=== PATIENT | male | born 1995 | race Caucasian/White ===

== ENCOUNTER 2020-04-27 17:02 | Outpatient (REF) | payer OTHER, SELFPAY ==
[2020-04-27 17:27] LABS: COVID-19 Test Negative (Negative); IDNOW Serial# 55D5AD1C
== END 2020-04-27 17:03 | disposition home or self-care (01) ==
LOC: HO.LAB 17:02
PROVIDERS: Visit Provider Internal Medicine
DX: Z20.828 Contact with and (suspected) exposure to other viral communicable diseases (principal)
CPT/HCPCS: 87635; C9803

== ENCOUNTER 2020-05-07 11:48 | Outpatient (REF) | payer OTHER, SELFPAY ==
[2020-05-07 12:22] LABS: COVID-19 Test Positive (Negative)
== END 2020-05-07 11:49 | disposition home or self-care (01) ==
LOC: HO.LAB 11:48
PROVIDERS: Visit Provider Internal Medicine
DX: Z20.828 Contact with and (suspected) exposure to other viral communicable diseases (principal)
CPT/HCPCS: 36415; 87635; C9803

== ENCOUNTER 2020-05-18 10:47 | Outpatient (REF) | payer OTHER, SELFPAY ==
[2020-05-20 10:15] LABS: SARS-COV-2 PCR UMBRL NEGATIVE
== END 2020-05-18 10:48 | disposition home or self-care (01) ==
LOC: HO.LAB 10:47
PROVIDERS: Visit Provider Internal Medicine
DX: Z20.822 Contact with and (suspected) exposure to COVID-19 (principal)
CPT/HCPCS: 36415; C9803; U0003

== ENCOUNTER → 2020-09-17 11:54 | Outpatient (REF) | payer OTHER, SELFPAY ==
--- NOTE | 2020-09-17 12:37 | ECG_ITS ---
Test Reason : R55 Blood Pressure : / mmHG Vent. Rate : 069 BPM Atrial Rate : 069 BPM P-R Int : 128 ms QRS Dur : 096 ms QT Int : 366 ms P-R-T Axes : 067 084 031 degrees QTc Int : 392 ms Normal sinus rhythm with sinus arrhythmia Incomplete right bundle branch block Borderline ECG No previous ECGs available Referred By: Jairo Darby Electronically Signed By:YAKELIN IBANEZ MD
[2020-09-17 13:10] LABS: MANUAL DIFF FLAG NO
[2020-09-17 13:14] LABS: Basophils Percent Auto 0.7 % (0-2); Eosinophils Absolute Auto 0.4 X10*3/uL (0.0-0.4); Hematocrit 43.4 % (42-52); Hemoglobin 14.7 g/dl (14.0-18.0); Imm Gran Abs Auto 0.02 X10*3/uL (0.00-0.03); Imm Gran Pct Auto 0.4 % (0.0-0.4); Lymphocytes Absolute Auto 2.2 X10*3/uL (1.2-4.9); Lymphocytes Percent Auto 39.4 % (20-40); Mean Corpuscular HGB Conc 33.9 g/dl (31.0-36.0); Mean Corpuscular Hemoglobin 28.7 pg (27.0-33.0); Mean Corpuscular Volume 84.6 fL (80-98); Monocytes Absolute Auto 0.6 X10*3/uL (0.1-1.2); Monocytes Percent Auto 10.6 % (2-11); Neutrophils Absolute Auto 2.3 X10*3/uL (2.0-8.3); Neutrophils Percent Auto 41.9 % (45-73); Platelet Count 307 X10*3/uL (160-400); Red Blood Count 5.13 X10*6/uL (4.60-5.80); Red Cell Distribution Width 12.4 % (11.0-16.0); White Blood Count 5.6 X10*3/uL (4.8-10.8)
[2020-09-17 13:34] LABS: Alanine Aminotransferase 17 U/L (0-40); Albumin Level 4.5 g/dL (3.5-5.0); Alkaline Phosphatase 51 U/L (39-117); Anion Gap 10 (12-20); Aspartate Amino Transferase 22 U/L (5-37); Bilirubin Total 0.7 mg/dL (0.0-1.0); Blood Urea Nitrogen 15 mg/dL (9-16); Calcium 9.9 mg/dL (8.4-10.2); Carbon Dioxide 27 mmol/L (22-29); Chloride 105 mmol/L (96-108); Estimated Glomerular Filt Rate > 60; Glucose Random 99 mg/dL (60-115); Potassium 4.4 mmol/L (3.3-5.1); Sodium 138 mmol/L (135-145); Total Protein 6.7 g/dL (6.5-8.0)
== END ==
LOC: HO.CARD 11:54
PROVIDERS: Visit Provider Family Medicine
DX: R55 Syncope and collapse (principal)
CPT/HCPCS: 36415; 80053; 84443; 85025; 93005

== ENCOUNTER → 2020-09-23 09:30 | Outpatient (BNVA) | payer OTHER, SELFPAY | PROVIDERS: PCP Pediatrics; Visit Provider Internal Medicine Cardiovascular Disease ==

== ENCOUNTER → 2020-09-25 10:32 | Outpatient (REF) | payer OTHER, SELFPAY ==
--- NOTE | 2020-09-25 10:30 | CA_ITS ---
Transthoracic Echocardiogram Patient (Last, First, Middle): Markell Griffiths, Gender: Male Date of : 1995 Age: 24 Procedure Date: 09/25/2020 Procedure Type: Transthoracic Echocardiogram Location: OP Height: 172.72 cm Weight: 66.23 kg BSA: 1.79 m2 Heart Rate: bpm BP: 121 / 81 mmHg Surgical Coder: ALISE Referring MD: Alberto Hansen MD Symptoms: R55 SYNCOPE Study Quality: Good ECG Rhythm: Sinus bradycardia Conclusions: - The left ventricular systolic function is normal. The visually estimated ejection fraction is between 60-65%. - No obvious valvular pathology seen on this study. Findings Left Ventricle Normal left ventricular cavity size. There is normal left ventricular wall thickness. The left ventricular systolic function is normal. The visually estimated ejection fraction is between 60-65%. There is no evidence of regional wall motion abnormalities. Diastolic function is normal for age. Right Ventricle Normal right ventricular cavity size and systolic function. Aortic Valve There is a normal trileaflet aortic valve. There is no aortic valve stenosis. There is no aortic valve regurgitation. Mitral Valve The mitral valve appears normal. There is trace mitral valve regurgitation. There is no mitral valve stenosis. Pulmonic Valve The pulmonic valve was not well visualized. Tricuspid Valve Normal tricuspid valve structure. There is trace tricuspid valve regurgitation. The pulmonary artery systolic pressure is normal. Great Vessels The aortic annulus, sinuses of valsalva, asc aorta, and aortic arch are normal in size. Venous The inferior vena cava is normal in size and collapses greater than 50% with inspiration. Pericardium/Pleural There is no evidence of pericardial effusion. Prior Study Comparison No prior study available for comparison. Recommendations, Care & Conclusions No obvious valvular pathology seen on this study. Measurements M-Mode Liner Measurements Normals - Women/Men AOV Cusps: 2.00 1.5-2.6 cm/m2 2D Linear Measurements IVSd: 0.50 0.6-0.9/0.6-1.0 cm LVIDd: 5.01 3.9-5.3/4.2-5.9 cm LVIDd Index: 2.80 2.4-3.2/2.2-3.1 cm/m2 LVIDs: 3.50 2.0-3.6 cm LVPWd: 0.65 0.7-1.1 cm Ao Root: 2.60 2.1-3.5 cm LA Diam: 3.20 2.7-3.8/3.0-4.0 cm LAIDs Index: 1.79 1.5-2.3 cm/m2 LV Mass: 112.67 67-162/88-224 g LV Mass Index: 62.94 43-95/49-115 g/m2 LVOT Diam: 2.00 3.0+(-)1.3 cm 2D Systolic Function EF 4C: 65.80 >55% EF 2C: 65.30 >55% EF BiP: 65.30 >55% Mitral Valve MV Pk E: 0.87 MV PK A: 0.39 MV Decel Time: 275.00 E/A: 2.30 E'Lateral: 22.00 E'Medial: 13.50 E/E' Med: 6.50 E/E' Lat: 4.00 PHT: 80.00 MVA PHT: 2.75 Decel [place]: 3.18 Aortic Valve AoV Pk Michael: 1.31 AoV Mn Michael: 0.85 AoV VTI: 0.29 AoV Pk Grad: 7.00 Aov Mn Grad: 3.00 ROGE Cont.VTI: 2.30 LVOT LVOT Pk Michael: 1.03 LVOT Mn Michael: 0.65 LVOT VTI: 0.21 LVOT Pk Grad: 4.00 LVOT Mn Grad: 2.00 LVOT Diam: 2.00 LVOT Area: 3.14 Diastolic Function MV Pk E: 0.87 MV Pk A: 0.39 E/A: 2.30 E'Medial: 13.50 E/E' Med: 6.50 E' Laterial: 22.00 E/E' Lat: 4.00 Tricuspid Valve TR Pk Michael: 2.22 TR Pk Grad: 20.00 RA Press: 3.00 RVSP: 23.00 Great Vessels Aorta Ao Root-2D: 2.60 2.0-3.7 cm Ao Asc: 2.30 2.1-3.4 cm Ao Arch: 2.20 Pulmonary Valve PV Pk Michael: 0.91 Peak PV Grad: 3.00 Updated in Other Vendor System with Status of Final Freddy Brown MD electronically signed on 09/26/2020 1:24:58 PM with status of Final
== END ==
LOC: HO.CARD 10:32
PROVIDERS: PCP Family Medicine; Visit Provider Internal Medicine Cardiovascular Disease
DX: R55 Syncope and collapse (principal)
CPT/HCPCS: 93306

== ENCOUNTER → 2020-10-02 09:38 | Outpatient (REF) | payer OTHER, SELFPAY ==
--- NOTE | 2020-10-02 15:30 | ECG_ITS ---
Hook-up date: 2020-10-02 10:09:00 Duration: 47:59:00 Test Indications: SYNCOPE AND COLLAPSE Medications: [id number] QRS complexes * Ventricular ectopics which represent % of total QRS comp. 21 Supraventricular ectopics which represent <1 % of total QRS comp. * Paced QRS complexs which represent % of total QRS comp. VENTRICULAR ECTOPY * Isolated * Bigeminal Cycles * Couplets * Runs * Beats in Runs * Beats LONGEST at * BPM at :: -- * Beats FASTEST at * BPM at :: -- SUPRAVENTRICULAR ECTOPY 21 Isolated 0 Couplets 0 Runs 0 Beats in Runs * Beats LONGEST at * BPM at :: -- * Beats FASTEST at * BPM at :: -- HEART RATES 39 MIN at 05:25:24 2020-10-03 77 AVG 189 MAX at 11:49:49 2020-10-02 LONGEST RR 1.8800 secs at 06:54:56 2020-10-03 S-T LEVELS Channel 1 - 128 mm at 10:09:00 2020-10-02 - 128 mm at 10:09:00 2020-10-02 Channel 2 - 128 mm at 10:09:00 2020-10-02 - 128 mm at 10:09:00 2020-10-02 Channel 3 - 128 mm at 02:92:81 -- - 128 mm at 02:92:81 Basic rhythm Normal sinus rhythm No long pause or profound bradycardia Rare Premature atrial complexes No diary submitted Referred By: Alberto Hansen Overread By: ALBERTO HANSEN MD
== END ==
LOC: HO.CARD 09:38
PROVIDERS: PCP Family Medicine; Visit Provider Internal Medicine Cardiovascular Disease
DX: R55 Syncope and collapse (principal)
CPT/HCPCS: 93226

== ENCOUNTER → 2020-10-19 10:15 | Outpatient (BNVA) | payer OTHER, SELFPAY | PROVIDERS: PCP Family Medicine; Referring Provider Family Medicine; Visit Provider Internal Medicine Cardiovascular Disease ==

== ENCOUNTER 2020-10-28 11:07 | Day surgery (SDC) | payer OTHER, SELFPAY ==
--- NOTE | 2020-10-01 23:59 | ECG_ITS ---
Test Reason : CP Blood Pressure : / mmHG Vent. Rate : 081 BPM Atrial Rate : 081 BPM P-R Int : 132 ms QRS Dur : 094 ms QT Int : 370 ms P-R-T Axes : 057 075 023 degrees QTc Int : 429 ms Normal sinus rhythm Incomplete right bundle branch block Borderline ECG No previous ECGs available Referred By: Geoffrey Samson Electronically Signed By:YAKELIN IBANEZ MD
[2020-10-22 15:05] VITALS: BMI 21.2
--- NOTE | 2020-10-27 08:35 | P.CONAN_ITS ---
HPI - Anesthesia Eval Consult details Narrative: 25yo M for Pacemaker Insertion, Dual +Tilt table test: Vasovagal syncope type 2B with predominantly cardio inhibitory response with asystole immediately within a minute after head-up tilt positioning. COUNT INCLUDES THE [facility] Active Problems Active Problems: All Active Problems (Updated 10/22/20 @ 15:05 by Jessenia Mccauley) Vasovagal syncope (Acute) Past Medical History Medical History (Updated 10/22/20 @ 15:05 by Jessenia Mccauley) History of COVID-19 Vasovagal syncope Family History Family History Father CAD (coronary artery disease) Mother No problems noted. Social History Social History Household Members: Family Household Members Other:: 3 Housing: Apartment Patient Tobacco Use Status: Never used Tobacco Substance Use Type: Marijuana Meds Allergies Allergy/AdvReac Type Severity Reaction Status Date / Time bee pollen [BEE STINGS] Allergy Severe ANAPHYLAXIS Verified 10/28/20 12:41 Exam Exam Date and Time: October 27, 2020 0835 Height,Weight and Vital Signs: Height 5 ft 8 in Weight 63.503 kg Pertinent Lab Results Pertinent Lab Results: Laboratory Tests 09/17/20 09/17/20 12:55 12:55 WBC 5.6 Hgb 14.7 Hct 43.4 Plt Count 307 Sodium 138 Potassium 4.4 Chloride 105 Carbon Dioxide 27 BUN 15 Creatinine 0.87 Narrative Narrative: EKG 08/2020 Vent. Rate : 069 BPM Atrial Rate : 069 BPM P-R Int : 128 ms QRS Dur : 096 ms QT Int : 366 ms P-R-T Axes : 067 084 031 degrees QTc Int : 392 ms Normal sinus rhythm with sinus arrhythmia Incomplete right bundle branch block Borderline ECG No previous ECGs available ECHO 08/2020 Conclusions: - The left ventricular systolic function is normal. The visually estimated ejection fraction is between 60-65%. - No obvious valvular pathology seen on this study. Head-up tilt-table test was highly abnormal. Within 30 seconds after going upright he felt like he was going to pass out and subsequently had a systolic episode of 7 seconds. Patient loss consciousness. He was then tilted back to supine position regained consciousness after 30 seconds. per cardiac note Assessment and Plan Assessment Anesthesia Assessment: Chart Reviewed
[2020-10-28] VITALS (12 sets, daily range): BP systolic 107–124; BP diastolic 56–82; PULSE 65–113; RESP 18–20; TEMP 36.3–37.1; O2SAT 95–99; BMI 21.2
--- NOTE | ~2020-10-28 | XR_ITS ---
EXAMINATION: XR CHEST CLINICAL INFORMATION: Pacemaker insertion COMPARISON: Previous chest and left rib x-ray August 2011 TECHNIQUE: Frontal view of the chest was obtained. FINDINGS: There is a new left subclavian dual chamber pacemaker in satisfactory position. The cardiac and mediastinal contours are normal. The lungs are clear. There is no effusion or thorax. Bony structures are unremarkable. XR/XR chest 1V IMPRESSION: Satisfactory position of left subclavian dual chamber pacemaker. No pneumothorax.
--- NOTE | ~2020-10-28 | FL_ITS ---
EXAMINATION: XR FLUOROSCOPY WITH IMAGES CLINICAL INFORMATION: Pacemaker insertion COMPARISON: None. TECHNIQUE: Fluoroscopy performed by Dr. Geoffrey Samson. Fluoroscopy time: 1 minutes Dose: 100 mgy Images: 1 FINDINGS: Single AP fluoroscopic view of the chest demonstrates a dual-chamber pacemaker in satisfactory position. FL/FL guidance in OR IMPRESSION: Fluoroscopy guidance for pacemaker placement.
[2020-10-28] MEDS: Lactated Ringers 1,000 ML 100 ML IVCONT (12:13)
--- NOTE | 2020-10-28 12:34 | MHC.SHP ---
Pre-Procedural Eval Section A Date of Service: 10/28/20 Section B Chief Complaint: syncope Allergies: Allergies Allergy/AdvReac Type Severity Reaction Status Date / Time bee pollen [BEE STINGS] Allergy Severe ANAPHYLAXIS Unverified 01/16/20 17:44 Plan I have reviewed the history and physical and performed a pertinent physical examination on my patient. No changes have occurred unless specified.
--- NOTE | 2020-10-28 14:54 | P.OP_ITS ---
Operative Note Operative Note Date of Service: 10/28/20 Narrative: Preoperative diagnosis: Syncope and vasovagal syndrome type to be with cardio inhibitory effect Postoperative diagnosis: Same Operation: Placement of dual-chamber permanent pacemaker with fluoroscopic guidance Surgeon: Geoffrey Samson MD Specimens: None EBL: 5 cc Operative findings: The pacemaker placed was a Medtronic serial number [id number]. The atrial lead was a Medtronic serial number [id number]. The ventricular lead was a Medtronic serial number [id number]. Parameters in the right atrial lead sensing was 4.125 with impedance of 722 Ohms and a threshold of 0.5 volts at 0.4 milliseconds. In the ventricular lead threshold was 0.5 volts at 0.4 milliseconds with an impedance of 912 Ohms and an R-wave of 11.8 mV. Patient tolerated procedure well. Operation in detail: The patient was brought to the operating room, placed supine on the operating room table, anesthesia moderate of ices were placed, and the patient was gently sedated. A time-out was performed confirming the correct patient site and procedure. After injection of local anesthetic, a 3 cm incision was made in the left infraclavicular region and carried down to the pectoralis fascia with electrocautery. The patient was then placed in Trendelenburg and an 18 gauge needle was used to access subclavian vein on the 1st take. And a wire was placed into the right atrium under fluoroscopic guidance. A 2nd 18 gauge needle was then used to access the subclavian vein again on the 1st ache and a wire was placed under fluoroscopic guidance and parked in the right atrium. The patient was then taken out of Trendelenburg and a pocket was formed using blunt and electrocautery dissection. The 1st 6 Micronesian sheath was then placed over wire and the wire and dilator were removed. The ventricular lead was then placed th rough the sheath and parked in the right atrium and the peel-away sheath was removed. After several attempts using a curved stylet we were eventually able to access the right ventricle and the tip of the lead was positioned at the right ventricular apex. The endocardial screw was deployed and the lead was tested with excellent parameters above. This lead was then secured with silk sutures to the pectoralis fascia. The 2nd 6 Micronesian sheath was then placed over the 2nd wire and a wire dilator removed. The atrial lead was then placed and parked in the right atrium. AJ stylet was used to position this in the right atrial appendage. The endocardial screws deployed and the lead was tested with excellent parameters above. This lead was also secured with silk sutures to the pectoralis fascia. The pocket was then copiously irrigated with antibiotic solution. The leads were then placed in their appropriate receptacles and the pacemaker was tested again with excellent parameters. The generator and excess lead was then placed into the pocket. The wound was then closed with a deep running 3-0 Vicryl suture followed by running 3-0 Vicryl suture and Dermabond glue in the skin. The patient was then brought back to the recovery room stable condition.
[2020-10-28] MEDS: Acetaminophen 325 MG TABLET 650 MG PO (17:55)
[2020-10-28] MEDS: 0.9 % Sodium Chloride Flush 3 ML SYRINGE IVFLUSH ×2 (17:55→22:12)
[2020-10-28] MEDS: oxyCODONE HCl Immed Release 5 MG TABLET PO (23:58)
--- NOTE | 2020-10-29 02:02 | PC.NURSE ---
pt c/o of midsternal pressure radiating to left arm and back.lamp shades supervisor basil notified.stat EKG done.pt states pain with deep breath.medicated with oxycodone 5mg at 0055.EKG-normal sinus rhythm and incomplete right bundle branch block.pt stattes pain better.resting in bed.hob elevated.no acute distress.A-paced SR on monitor.
[2020-10-29 03:25] VITALS: BP 123/72; PULSE 102; RESP 18; TEMP 36.4; O2SAT 97
--- NOTE | 2020-10-29 07:45 | P.DS_ITS ---
DS: Providers Provider Date of Service: 10/29/20 Primary care physician: Jairo Darby MD DS: Diagnosis Discharge Diagnosis (1) Vasovagal syncope: Status: Acute DS: Medications Discharge Medications Home Medications: Home Medications Medication Instructions Recorded Confirmed No Known Home Meds 09/23/20 10/19/20 DS: Summary Time Spent with Patient Time attestation: Patient is a pleasant 25 year-old male with a past medical history of COVID-19 who was admitted to [facility] for a dual pacemaker insertion performed by Dr. Samson on 10/28/20 following a vasovagal syncope type 2B with predominantly cardio inhibitory response with asystole immediately within a minute after head- up tilt positioning with Tilt table test. According to Cardiac note Head-up ti lt-table test was highly abnormal. Within 30 seconds after going upright he felt like he was going to pass out and subsequently had a systolic episode of 7 seconds. Patient loss consciousness. He was then tilted back to supine position regained consciousness after 30 seconds. For this reason, a dual chamber pacemaker was placed. See Dr. Samson's operative note on 10/28/20 for details of the procedure. Pacemaker interrogated this am and per Dr. Samson, patient may be discharged home today. He will have a post-op appointment with Dr. Samson on 11/13/20. See discharge instructions for details. MASSPAT reviewed and patient will be discharged with PO oxycodone as needed for pain control. Patient seen and examined this am. He has done well following his surgery. His only complaint is throat pain and some tightness to pacemaker site. Otherwise, patient denies shortness of breath, dizziness, lightheadedness, or palpitations. Voiding without difficulty. Ambulating independently with no issues. Doing well overall. NSR on tele. Past Medical history: COVID-19 Vasovagal syncope Past surgical history: None provided Social History: Patient Tobacco Use Status: Never used Tobacco Use of substances other than those prescribed or required for medical reasons: No Allergies: Bee pollen- anaphylaxis Total time spent providing and/or coordinating discharge services: <30 minutes Discharge coordination time: Less than 30 minutes Quality: Stroke Does the patient have a stroke diagnosis?: No Physical Exam Vital Signs: Vital Signs: Last Vital Signs Temp 97.6 F 10/29/20 03:25 Pulse 102 H 10/29/20 03:25 Resp 18 10/29/20 03:25 BP 123/72 10/29/20 03:25 Pulse Ox 97 10/29/20 03:25 Body Mass Index 21.2 Const: General: cooperative, healthy appearing, no acute distress, alert and awake Orientation/consciousness: oriented to person, oriented to place, oriented to time and patient oriented x3 HENMT: Head: Yes normal to inspection, Yes normocephalic and Yes atraumatic Eyes: General: appearance normal, both eyes and all related structures Neck: Neck: Yes normal visual inspection, Yes no lymphadenopathy, Yes trachea midline, Yes supple, No tracheal deviation and Yes no JVD Lymphatic: no lymphadenopathy noted Chest: Chest palpation & inspection: normal inspection of the chest and no crepitus Resp: Effort & Inspection: normal respiratory effort, able to speak in complete sentences, no cough, no respiratory distress, no retractions, not tachypneic, no tracheal deviation, no use of accessory muscles and symmetric chest movement Cardio: Other: Pacemaker site clean, dry, and intact. No ecchymosis, erythema, or induration. NSR on tele. Jugular venous distension: no JVD Palpation: normal PMI Rate: regular rate Rhythm: regular rhythm Heart sounds: S1 normal heart sound present, S2 normal heart sound present, no click, no gallops, no murmurs and no rubs Peripheral pulses: Peripheral pulses 2+ throughout GI: Inspection: Yes normal to inspection and No distended Palpation (GI): Soft to palpation, nontender, no guarding and not rigid Auscultation: normal bowel sounds Skin: General skin exam: no rashes or lesions noted and dry skin Neuro: General: oriented to person, oriented to place, oriented to time and patient oriented x3 Speech: No Abnormal speech present Extrem: General: Yes normal to inspection, Yes capillary refill normal, Yes no clubbing, cyanosis or edema and Yes no pedal edema Psych: Appearance: grossly normal and well kempt Mental Status: mental status grossly normal Speech and movement: Normal speech and movement present Affect: normal affect Attitude: cooperative Thought process: Normal thought process present Insight: Good insight present (Psych) Discharge Plan Discharge Patient Disposition: Home, Self-Care Referrals: Jairo Darby MD [Primary Care Provider] - 1 Week Discharge Medications: New acetaminophen 325 mg Tablet 650 mg PO Q6H PRN (Reason: Pain, Mild (Pain Scale 1-3)) 30 Days RF: 0 oxycodone 5 mg Tablet 5 mg PO Q6H PRN (Reason: Pain, Severe (Pain Scale 7-10)) Qty: 30 RF: 0 docusate sodium 100 mg capsule 100 mg PO DAILY 14 Days Qty: 14 RF: 0 sennosides [Senna Lax] 8.6 mg tablet 8.6 mg PO BEDTIME 14 Days Qty: 14 RF: 0 Discharge Orders: Discharge Order (Routine); Ordered 10/29/20 Ordered By: Jessenia Guy Patient Instructions: Pacemaker (DC) Activity Restrictions/Additional Instructions: ACTIVITY: * Do not move left arm across the chest, above shoulder, or behind back for 6 weeks * Keep arm in sling for 48 hours following surgery * May ambulate independently * Refer to Pacemaker discharge instructions WOUND CARE: * Keep incision clean and dry * You may use gentle non-fragrant soap on the incision site and pat dry * Assess daily for any signs or symptoms of infection, bleeding, purulent drainage, warm, increased pain, or bruising * You may shower on 10/31/20 DIET: * You may resume your usual diet MEDICATIONS: * You have been given a prescription for Oxycodone, Tylenol, and stool softeners. * Do NOT drive or operate heavy machinery while taking narcotics CALL THE OFFICE IF: * You experience worsening shortness of breath, chest pain, heart palpitations, fever > 100.4, or respiratory distress * The [facility] office phone # is [phone] FOLLOW-UP APPOINTMENT: * You have a 2-week post operative appointment with Dr. Samson on 11/13/20 @ 10:15am * The office is located at [address] [place] [address]
[2020-10-29 07:52] VITALS: BP 126/73; PULSE 83; RESP 19; TEMP 36.1; O2SAT 98
--- NOTE | 2020-10-29 10:00 | MHC.CM.PN ---
Male 25 DX Syncope is discharged to home no services. Patient arranged ride home.
--- NOTE | 2020-10-29 12:52 | HO.POSTANES ---
Post Anesthesia Evaluation Post Anesthesia Evaluation Vital Signs: Vital Signs Temp Pulse Resp BP Pulse Ox 10/29/20 07:52 97.0 F 83 19 126/73 98 10/29/20 03:25 97.6 F 102 H 18 123/72 97 Anesthesia: Monitored Mental Status: Awake Pain Control: Satisfactory Nausea/Vomiting: None Hydration: Adequate Anesthesia-Related Issues: No Anes. Related Issues
== END 2020-10-29 09:57 | disposition home or self-care (01) ==
LOC: HO.SSS 11:09 → HO.IMC 16:50
PROVIDERS: PCP Family Medicine; Visit Provider Surgery
PROC: (CPT 33208; principal; 2020-10-28 11:30)
DX: R55 Syncope and collapse (principal); I45.10 Unspecified right bundle-branch block; Z86.16 Personal history of COVID-19
CPT/HCPCS: 33208; 71045; 93005; C1785; C1892; C1898; J0690; J2250; J3010; J3370

== ENCOUNTER → 2020-11-04 11:30 | Outpatient (BNVA) | payer OTHER, SELFPAY | PROVIDERS: PCP Family Medicine; Referring Provider Family Medicine; Visit Provider Internal Medicine Cardiovascular Disease ==

== ENCOUNTER → 2020-11-06 09:27 | Outpatient (BNVA) | payer OTHER, SELFPAY | PROVIDERS: PCP Family Medicine; Visit Provider Surgery | DX: R55 Syncope and collapse (principal); Z95.0 Presence of cardiac pacemaker | CPT/HCPCS: 99212 ==

== ENCOUNTER → 2020-11-24 10:18 | Outpatient (REF) | payer OTHER, SELFPAY ==
--- NOTE | 2020-11-24 10:21 | CA_ITS ---
Acquisition Time: 2020-11-24 10:34:51 Total Exercise Time: 00:12:17 Test Indications: SYNCOPE Medications: SEE CHART Protocol: JOVANNY Max HR: 203 BPM 103% of Pred: 197 BPM Max BP: 146/070 mmHG Max Work Load: 13.9 METS Exercise stress test with exercise 12 min 17 sec of Jovanny protocol, without anginal symptoms, without arrythmia, with normotensive response to exercise, without EKG changes meeting criteria for ischemia. Test reviewed with Dr Hansen. Referred By: Alberto Hansen Overread By: JAZMIN GORDON
== END ==
LOC: HO.CARD 10:18
PROVIDERS: Visit Provider Internal Medicine Cardiovascular Disease
DX: R68.84 Jaw pain (principal)
CPT/HCPCS: 93017

== ENCOUNTER → 2020-11-26 09:21 | Outpatient (BNVA) | payer OTHER, SELFPAY | PROVIDERS: PCP Family Medicine; Visit Provider Internal Medicine Cardiovascular Disease ==

== ENCOUNTER 2021-05-04 12:24 | Outpatient (REF) | payer OTHER, SELFPAY ==
[2021-05-04 13:52] LABS: Binax Internal Control QC Valid; Binax Lot number: 9864; Binax Now Covid-19 Ag Negative (Negative)
== END 2021-05-04 12:25 | disposition home or self-care (01) ==
LOC: HO.LAB 12:24
PROVIDERS: Visit Provider Internal Medicine
DX: Z20.822 Contact with and (suspected) exposure to COVID-19 (principal)
CPT/HCPCS: 36415; C9803

== ENCOUNTER 2021-05-06 12:56 | Outpatient (REF) | payer OTHER, SELFPAY ==
[2021-05-06 13:22] LABS: COVID-19 Test Positive (Negative)
== END 2021-05-06 12:57 | disposition home or self-care (01) ==
LOC: HO.LAB 12:56
PROVIDERS: Visit Provider Internal Medicine
DX: Z20.822 Contact with and (suspected) exposure to COVID-19 (principal)
CPT/HCPCS: 87635; C9803

== ENCOUNTER → 2021-05-20 08:33 | Outpatient (BNVA) | payer OTHER, SELFPAY | PROVIDERS: PCP Family Medicine; Referring Provider Family Medicine; Visit Provider Internal Medicine Cardiovascular Disease ==

== ENCOUNTER → 2022-05-03 10:34 | Outpatient (REF) | payer OTHER, SELFPAY ==
--- NOTE | 2022-05-03 10:36 | CA_ITS ---
Acquisition Time: 2022-05-03 10:48:52 Total Exercise Time: 00:15:31 Test Indications: ST Medications: SEE CHART Protocol: JOVANNY Max HR: 193 BPM 98% of Pred: 196 BPM Max BP: 148/050 mmHG Max Work Load: 18.0 METS Exercise stress test with exercise 15 min 31 sec of Jovanny protocol, achieving 98% MPHR, 17.8 METs, without anginal symptoms, without arrythmia, with normotensive response to exercise, without EKG changes meeting criteria for ischemia. Test reviewed with Dr Brown. Referred By: Alberto Hansen Overread By: JAZMIN GORDON
== END ==
LOC: HO.CARD 10:34
PROVIDERS: Visit Provider Internal Medicine Cardiovascular Disease
DX: R55 Syncope and collapse (principal)
CPT/HCPCS: 93017

== ENCOUNTER → 2022-05-23 08:52 | Outpatient (BNVA) | payer OTHER, SELFPAY | PROVIDERS: PCP Family Medicine; Referring Provider Family Medicine; Visit Provider Internal Medicine Cardiovascular Disease | DX: Z45.018 Encounter for adjustment and management of other part of cardiac pacemaker (principal); R55 Syncope and collapse | CPT/HCPCS: 93005; 93280 ==

== ENCOUNTER 2022-06-14 11:40 | Emergency (ER) | payer OTHER, SELFPAY ==
[2022-06-14 11:52] VITALS: BMI 22.8
--- NOTE | 2022-06-14 11:57 | ED_ITS ---
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 He states the knife slipped and went into the palm. He rinsed it, applied pressure and came to the ER for further evaluation. Tdap UTD. No numbness, weakness, or tingling. He states his palm feels like a bruise. Complaint: extremity pain Onset (ago): minute(s) Pain Consistency: constant Location: left and upper extremity Severity scale (1-10): 3 Quality: aching Radiation: none Exacerbating factors: palpation Associated symptoms: denies other symptoms Related Data Home Medications Medication Instructions Recorded Confirmed No Known Home Meds 11/26/20 05/23/22 Allergies Allergy/AdvReac Type Severity Reaction Status Date / Time bee pollen [BEE STINGS] Allergy Severe ANAPHYLAXIS Verified 06/14/22 11:56 Review of Systems Review of Systems: Yes all other systems are reviewed and are negative [facility] Past Medical History Medical History History of COVID-19 (~05/07/20) Pacemaker (~10/28/20) Vasovagal syncope (~09/2020) Surgical History History of cardiac pacemaker (~09/2020) Family History Family History Father CAD (coronary artery disease) Mother No problems noted. Social History Social History Household Members: Family Household Members Other:: 3 Housing: Apartment Patient Tobacco Use Status: Never used Tobacco Substance Use Type: Marijuana Advance Directives: No Advance Directives Information Provided: No Physical Exam Vital Signs: Vital Signs: Last Vital Signs Temp 98 F 06/14/22 12:02 Pulse 87 06/14/22 12:02 Resp 20 06/14/22 12:02 BP 118/78 06/14/22 12:02 Pulse Ox 98 06/14/22 12:02 O2 Del Method 06/14/22 12:02 BMI result Body Mass Index 22.8 Appearance: Alert. Oriented X3. No acute distress. HEENT: normal inspection CVS: Normal heart rate and rhythm. Pulses normal. Respiratory: No respiratory distress. Skin: Skin warm and dry. Normal skin color. Normal skin turgor. No rashes. Extremities: left palm with a small 1.5 cm linear laceration distal to the thenar eminence with slight oozing. normal vice president of compliance strength. normal ROM of all of the digits. NV intact distally. Neuro: Oriented X 3. No motor deficit. No sensory deficit. Course Course Course Narrative: 26 yo male presents to the ER for a laceration to the left palm with kitchen knife while cutting an [place]ac[place]. Amenable to suture repair as patient reports they have a fitness test this weekend and need to do 30 push ups in 60 seconds. tdap utd. Reevaluation(s) Reevaluation #1: tolerated suture repair. wound care discussed. stable for d/c. Medical Decision Making Differential Diagnosis Differential Diagnoses: The differential diagnosis associated with the presentation includes superficial laceration, deep laceration, less likely tendon involvement/laceration or metacarpal fracture External Record Review External record reviewed: Prior outpatient labs Tests considered The following testing was considered but not selected: x-ray considered, not indicated given exam findings Prescription Management I considered prescription management with: Pain Medication and Antibiotic Critical Care Time Critical Care Time Critical Care Time: No Discharge Plan Discharge Clinical Impression: Laceration of hand Patient Disposition: Home, Self-Care Instructions: Laceration (ED) Additional Instructions: 2 sutures were used to close your wound. You will need your stitches out in 7-10 days. See you doctor for this or come back to the ER and we will remove them. Do not get wet for 24 hours, after that you can briefly wash with soap and water then pat dry. Allow open to air when you are home, keep clean and covered when at work. Keep wound clean and covered. Do not submerge in water, no swimming. If you develop signs of infection including increased pain, swelling, redness or drainage of pus come back to the ER for further evaluation. Prescriptions: No Action No Known Home Meds Referrals: Sekou Petit MD [Primary Care Provider] -
[2022-06-14 12:02] VITALS: BP 118/78; PULSE 87; RESP 20; TEMP 36.6; O2SAT 98
[2022-06-14] MEDS: Lidocaine HCl 1 % MPF 5 ML VIAL INFILTRATI (13:32)
== END 2022-06-14 13:55 | disposition home or self-care (01) ==
PROVIDERS: Emergency Provider Emergency Medicine; PCP Family Medicine
DX: S61.412A Laceration without foreign body of left hand, initial encounter (principal); W26.0XXA Contact with knife, initial encounter; Y93.G3 Activity, cooking and baking; Y92.000 Kitchen of unspecified non-institutional (private) residence as the place of occurrence of the external cause; Y99.9 Unspecified external cause status
CPT/HCPCS: 12001; 99282; 99284

== ENCOUNTER → 2022-11-13 23:59 | Outpatient (BNV) | payer OTHER, SELFPAY ==
--- NOTE | 2022-11-17 09:09 | MHC.OFFVIS ---
Intake Intake Visit Reasons: Remote Device Check- Medtronic Allergies bee pollen [BEE STINGS] Allergy (Severe, Verified 06/14/22 11:56) ANAPHYLAXIS [facility] Medical History History of COVID-19 (~05/07/20) Pacemaker (~10/28/20) Vasovagal syncope (~09/2020) Surgical History History of cardiac pacemaker (~09/2020) Family History Father CAD (coronary artery disease) Mother No problems noted. Social History Household Members: Family Household Members Other:: 3 Housing: Apartment Patient Tobacco Use Status: Never used Tobacco Substance Use Type: Marijuana Advance Directives: No Advance Directives Information Provided: No Office Procedures Cardiac Device Check Cardiac Device Check Details: Remote pacemaker report generated 11/14/2022. Pacemaker function is adequate [id number] Cardiac Device Interrogation, pacemaker Procedure code (CPT) selection complete Coding Level of Care Code Procedure Only Diagnoses CPT Codes Cardiac Device Check - Cardiac Device 12: [id number] Cardiac Device Interrogation, pacemaker ([id number])
== END ==
PROVIDERS: PCP Family Medicine; Visit Provider Internal Medicine Cardiovascular Disease
DX: R55 Syncope and collapse (principal); Z95.0 Presence of cardiac pacemaker
CPT/HCPCS: 93294

== ENCOUNTER → 2023-02-12 23:59 | Outpatient (BNV) | payer OTHER, SELFPAY ==
--- NOTE | 2023-02-20 08:36 | MHC.OFFVIS ---
Intake Intake Visit Reasons: Remote Device Check- Medtronic Allergies bee pollen [BEE STINGS] Allergy (Severe, Verified 06/14/22 11:56) ANAPHYLAXIS [facility] Medical History History of COVID-19 (~05/07/20) Pacemaker (~10/28/20) Vasovagal syncope (~09/2020) Surgical History History of cardiac pacemaker (~09/2020) Family History Father CAD (coronary artery disease) Mother No problems noted. Social History Household Members: Family Household Members Other:: 3 Housing: Apartment Patient Tobacco Use Status: Never used Tobacco Substance Use Type: Marijuana Advance Directives: No Advance Directives Information Provided: No Office Procedures Cardiac Device Check Cardiac Device Check Details: Remote pacemaker report generated 02/12/2023. Pacemaker function is adequate. [id number] Cardiac Device Interrogation, pacemaker Procedure code (CPT) selection complete Coding Level of Care Code Procedure Only CPT Codes Cardiac Device Check - Cardiac Device 12: [id number] Cardiac Device Interrogation, pacemaker ([id number])
== END ==
PROVIDERS: PCP Family Medicine; Visit Provider Internal Medicine Cardiovascular Disease
DX: R55 Syncope and collapse (principal); Z95.0 Presence of cardiac pacemaker
CPT/HCPCS: 93294

== ENCOUNTER → 2023-05-13 23:59 | Outpatient (BNV) | payer OTHER, SELFPAY ==
--- NOTE | 2023-05-15 12:13 | MHC.OFFVIS ---
Intake Intake Visit Reasons: Remote Device Check- Medtronic Allergies bee pollen [BEE STINGS] Allergy (Severe, Verified 06/14/22 11:56) ANAPHYLAXIS [facility] Medical History History of COVID-19 (~05/07/20) Pacemaker (~10/28/20) Vasovagal syncope (~09/2020) Surgical History History of cardiac pacemaker (~09/2020) Family History Father CAD (coronary artery disease) Mother No problems noted. Social History Household Members: Family Household Members Other:: 3 Housing: Apartment Comment: mild soreness Patient Tobacco Use Status: Never used Tobacco Substance Use Type: Marijuana Advance Directives: No Advance Directives Information Provided: No Office Procedures Cardiac Device Check Cardiac Device Check Details: Remote pacemaker report generated 05/13/2023. Pacemaker function is adequate. Atrial pacing about 30% of the time. [id number] Cardiac Device Interrogation, pacemaker Procedure code (CPT) selection complete Assessment & Plan Assessment & Plan (1) Pacemaker: Onset Date: ~10/28/20 Comment: (Medtronic DCPP - 10/28/20) Code(s): Z95.0 - Presence of cardiac pacemaker Plan: See above Coding Level of Care Code Procedure Only Diagnoses Pacemaker Z95.0 CPT Codes Cardiac Device Check - Cardiac Device 12: [id number] Cardiac Device Interrogation, pacemaker ([id number])
== END ==
PROVIDERS: PCP Family Medicine; Visit Provider Internal Medicine Cardiovascular Disease
DX: R55 Syncope and collapse (principal); Z95.0 Presence of cardiac pacemaker
CPT/HCPCS: 93294

== ENCOUNTER 2023-07-18 11:00 | Outpatient (AMB) | payer OTHER, SELFPAY ==
--- NOTE | 2023-07-18 11:04 | A.OFFVIS_ITS ---
Intake Vital Signs 07/18/23 11:05 Height 5 ft 8 in Weight 154 lb 5.177 oz BMI 23.5 BP 120/70 Blood Pressure Location Lt brachial Position Sitting Pulse 79 Intake Visit Reasons: r/s 1 year followup w/ekg w/medtronic Allergies bee pollen [BEE STINGS] Allergy (Severe, Verified 06/14/22 11:56) ANAPHYLAXIS Medication List - Last Reconciled 07/18/23 by Alberto Hansen MD No Known Home Meds HPI HPI Comments History of Present Illness Details Markell comes for his yearly follow-up. He has been doing well from cardiac perspective. He has been maintaining very high level of activity aerobically. Denies any cardiac symptoms. No chest pain or shortness of breath. Occasionally he said that he would feel the pacing when he suddenly comes off the workout. Otherwise he has been doing well. He maintains high level of hydration and salt intake. Denies any prolonged palpitation irregular heartbeat. [facility] Medical History Pacemaker (~10/28/20) History of COVID-19 (~05/07/20) Vasovagal syncope (~09/2020) Surgical History History of cardiac pacemaker (~09/2020) Family History Father CAD (coronary artery disease) Mother No problems noted. Social History Household Members: Family Household Members Other:: 3 Housing: Apartment Comment: mild soreness Patient Tobacco Use Status: Never used Tobacco Substance Use Type: Marijuana Review of Systems Const Denies chills, Denies fatigue, Denies fever(s), Denies frequent falls, Denies weakness, Denies weight gain and Denies weight loss ENT Denies dizziness Card Denies chest pain, Denies leg edema, Denies lightheadedness, Denies palpitations, Denies dyspnea, Denies dyspnea on exertion, Denies orthopnea and Denies other (loss of consciousness) Resp Denies cough, Denies dyspnea and Denies dyspnea on exertion GI Denies hematochezia and Denies change in stool character Musc Denies abnormal gait, Denies muscle weakness, Denies numbness, Denies radiating pain into limb and Denies tingling Neuro Denies abnormal gait, Denies dizziness, Denies frequent falls, Denies numbness, Denies tingling and Denies weakness Endo Denies fatigue and Denies palpitations Physical Exam Vital Signs: Last Vital Signs Pulse 79 07/18/23 11:05 BP 120/70 07/18/23 11:05 BMI result Body Mass Index 23.5 Const General: cooperative, comfortable, no acute distress, alert, awake and Physically active Nutritional Appearance: thin Orientation/consciousness: patient oriented x3 Limitations: no limitations Neck Neck: Yes trachea midline, Yes supple and Yes no JVD Chest Chest palpation & inspection: other (Pacemaker pocket is benign) Resp Effort & Inspection: normal respiratory effort Auscultation: clear to auscultation bilaterally Cardio Jugular venous distension: no JVD Rate: regular rate Rhythm: regular rhythm Heart sounds: S1 normal heart sound present, S2 normal heart sound present, no click, no gallops and no murmurs GI Auscultation: normal bowel sounds Neuro General: patient oriented x3 and no focal motor deficits Extrem General: Yes no clubbing, cyanosis or edema Office Procedures Cardiac Device Check Cardiac Device Check Details: Dual-chamber Medtronic pacemaker in place programmed in DDD at 45 beats per minute with rate drop response turned on. There is more than 10,000 episodes of rate drop noticed. Atrial pacing at 36% of time. High ventricular rate consistent with sinus tachycardia. Atrial and ventricular pacing thresholds excellent with adequate safety margin. Atrial ventricular sensing is adequate. Pacing lead impedance is stable. 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 He is done extremely well since the pacemaker placement with no recurrent syncopal episode. He is tolerating overall well with adequate pacemaker function. Will continue follow remotely every 3 months and follow up in the clinic in 1 year's time. He encouraged to continue to maintain adequate hydration and salt intake especially with high level of workouts. There is no restriction to activity. 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 Advised to call me with any new symptoms. No change in therapy is recommended at this point time. Will follow up in the clinic in 1 year's time, sooner p.r.n.. Thank you for allowing me to partake in his care Coding Level of Care Code Est Pt Level 4 (98325) Diagnoses Pacemaker Z95.0 CPT Codes Cardiac Device Check - Cardiac Device 2: [id number] Cardiac Device Check, pacemaker dual lead ([id number]) EKG - CPT: 66846-Rzsbrhtylzxndwegt, Complete ([id number])
[2023-07-18 11:05] VITALS: BP 120/70; PULSE 79; BMI 23.5
== END 2023-07-18 11:26 | disposition home or self-care (01) ==
PROVIDERS: PCP Internal Medicine; Visit Provider Internal Medicine Cardiovascular Disease
DX: R00.0 Tachycardia, unspecified (principal); Z95.0 Presence of cardiac pacemaker
CPT/HCPCS: 93010; 93280; 99214

== ENCOUNTER → 2023-07-18 11:00 | Outpatient (BNVA) | payer OTHER, SELFPAY | PROVIDERS: PCP Internal Medicine; Visit Provider Internal Medicine Cardiovascular Disease | DX: Z45.018 Encounter for adjustment and management of other part of cardiac pacemaker (principal) | CPT/HCPCS: 93005; 93280 ==

== ENCOUNTER → 2023-08-11 23:59 | Outpatient (BNV) | payer OTHER, SELFPAY ==
--- NOTE | 2023-08-17 16:00 | A.OFFVIS_ITS ---
Intake Visit Reasons: REmote device check- Medtronic Allergies bee pollen [BEE STINGS] Allergy (Severe, Verified 06/14/22 11:56) ANAPHYLAXIS [facility] Medical History Pacemaker (~10/28/20) History of COVID-19 (~05/07/20) Vasovagal syncope (~09/2020) Surgical History History of cardiac pacemaker (~09/2020) Family History Father CAD (coronary artery disease) Mother No problems noted. Social History Household Members: Family Household Members Other:: 3 Housing: Apartment Comment: mild soreness Patient Tobacco Use Status: Never used Tobacco Substance Use Type: Marijuana Office Procedures Cardiac Device Check Cardiac Device Check Details: Remote pacemaker report generated 08/14/2023. Pacemaker function is adequate [id number] Cardiac Device Interrogation, pacemaker Procedure code (CPT) selection complete Assessment & Plan Assessment & Plan (1) Pacemaker: Onset Date: ~10/28/20 Comment: (Medtronic DCPP - 10/28/20) Code(s): Z95.0 - Presence of cardiac pacemaker Category: Medical Plan: See above
== END ==
PROVIDERS: PCP Internal Medicine; Visit Provider Internal Medicine Cardiovascular Disease
DX: Z45.018 Encounter for adjustment and management of other part of cardiac pacemaker (principal)
CPT/HCPCS: 93294

== ENCOUNTER 2023-09-07 08:51 | Outpatient (AMB) | payer OTHER, SELFPAY ==
[2023-09-07 08:59] VITALS: BP 112/64; PULSE 100; O2SAT 100; BMI 23.7
--- NOTE | 2023-09-07 08:59 | MHC.PC.OV ---
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 Note: Patient is a new patient here to establish care Nurse Practical Required: No Allergies bee pollen [BEE STINGS] Allergy (Severe, Verified 09/07/23 08:59) ANAPHYLAXIS Medication List - Last Reconciled 09/07/23 by Shira Elizabeth MD acetaminophen (Tylenol) 325 mg PO QID PRN creatine monohydrate mg PO multivitamin (Daily Multi-Vitamin tablet) 1 tab PO DAILY Tobacco use date assessed: 09/07/23 Dental Screening Dental Screen Date: 09/07/23 Did you have a dental visit in the last 12 months?: Yes Did you have a dental problem in the last 6 months where you did not have access to dental care?: No Was dental information given to patient?: Patient has dentist 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 History of migraine 2017 had syncopal episodes 1st happened after taking melatonin, 2nd episode alcohol. Diagnosed vasovagal patient had another episode August 2020. 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 Pacemaker placement 10/28/2020 review of the notes vasovagal syncope type to be with predominantly cardio inhibitory response with asystole immediately within a minute after head up tilt positioning with tilt-table test. Had asystolic episode of 7 seconds. R knee pain ? boxing - 6 months, [facility] Medical History Pacemaker (~10/28/20) History of COVID-19 (~05/07/20) Vasovagal syncope (~09/2020) Surgical History History of cardiac pacemaker (~09/2020) Family History (Updated 09/07/23 @ 09:43 by Shira Elizabeth MD) Father CAD (coronary artery disease) Mother No problems noted. Maternal Grandmother Breast cancer Paternal Uncle Throat cancer Social History (Updated 09/07/23 @ 09:44 by Shira Elizabeth MD) Household Members: Family Household Members Other:: 3 Housing: House Alcohol intake: current Comment: mild soreness 2-3 x a week 2-3 beers Patient Tobacco Use Status: Never used Tobacco Substance Use Type: Marijuana service: No Current occupational status: employed Cognitive needs: No Hearing needs: No Vision needs: No Questionnaire PHQ-9 Over the last 2 weeks, how often have you been bothered by any of the following problems? 1. Little interest or pleasure in doing things: not at all 2. Feeling down, depressed, or hopeless: not at all 3. Trouble falling or staying asleep, or sleeping too much: not at all 4. Feeling tired or having little energy: not at all 5. Poor appetite or overeating: not at all 6. Feeling bad about yourself - or that you are a failure or have let yourself or your family down: not at all 7. Trouble concentrating on things, such as reading the newspaper or watching television: not at all 8. Moving or speaking so slowly that other people could have noticed. Or the opposite - being so fidgety or restless that you have been moving around a lot more than usual: not at all 9. Thoughts that you would be better off or of hurting yourself in some way: not at all Total score: 0 Depression Screening Interpretation: Negative Depression Screening Done: Yes 50219 - PHQ-9 Billing: Yes Source: Developed by Drs. Donato Ford, Latosha Sparks, Clarence Roldan and colleagues, with an educational josie from [employer]. Thrive Questionnaire Date Thrive assessed: 09/07/23 I am a: Patient What is your living situation today?: I have a steady place to live Within the past 12 months, did the food you bought not last and you didn't have the money to get more?: Never true Within the past 12 months, did you worry whether your food would run out before you got money to buy more?: Never true Do you have trouble paying for medicines?: No Do you have trouble getting transportation to medical appointments?: No Do you have trouble paying your heating and electricity bill?: No Do you have trouble taking care of your child, family member or friend?: No Do you have trouble with day-to-day activities such as bathing, preparing meals, shopping, managing finances, etc.?: No Are you currently unemployed and looking for a job?: No Are you interested in more education?: No Please select the resources that you would like help with: None Currently or been in a relationship where the following occur: no concerns reported THRIVE Score: 0 AUDIT C Alcohol Use Questionnaire (AUDIT-C) 1. How often do you have a drink containing alcohol?: Monthly or less 2. How many drinks containing alcohol do you have on a typical day when you are drinking?: 1 or 2 3. How often do you have six or more drinks on one occasion?: Never Total Score: 1 DUNG-7 AMB Questionnaire DUNG-7 Date DUNG - 7 assessed: 09/07/23 Feeling nervous, anxious, or on edge: 0 = Not at all Not being able to stop or control worryin = Not at all Worrying too much about different things: 0 = Not at all Trouble relaxin = Not at all Being so restless that it is hard to sit still: 0 = Not at all Becoming easily annoyed or irritable: 0 = Not at all Feeling afraid as if something awful might happen: 0 = Not at all Total DUNG-7 score (0-4 normal; 5-9 mild; 10-14 moderate; 15-21 severe): 0 Source: Developed by Drs. Donato Ford, Latosha Sparks, Clarence Roldan and colleagues, with an educational josie from [employer]. DUNG-7 Assessment Billing DUNG-7 Assessment Tool: DUNG-7 Assessment 06529 Physical exam (Primary Care) Vital Signs: Last Vital Signs Pulse 100 09/07/23 08:59 BP 112/64 09/07/23 08:59 Pulse Ox 100 09/07/23 08:59 Oxygen Delivery Method Room Air 09/07/23 08:59 BMI result Body Mass Index 23.7 Tobacco/Smoking Status: Tobacco use Status Tobacco use date assessed 09/07/23 09/07/23 09:00 Patient Tobacco Use Status Never used Tobacco 09/07/23 09:44 e-Cigarette/Vaping Use 09/07/23 09:11 PHQ-9: PHQ-9 Score PHQ-9: Total score 0 09/07/23 09:36 Depression Screening Interpretation: Negative Thrive Assessment: Date of Thrive Assessment Date Thrive assessed 09/07/23 09/07/23 09:00 Currently or been in a relationship where the following occur: no concerns reported Const General: alert; No acute distress Eyes Conjunctivae: conjunctivae normal Resp Auscultation: clear to auscultation bilaterally Cardio Rate: regular rate Rhythm: regular rhythm GI Inspection: Yes normal to inspection Extrem General: Yes normal to inspection and No edema Assessment and Plan Assessment & Plan (1) Vasovagal syncope: Onset Date: ~09/2020 Comment: (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 (2) Pacemaker: Onset Date: ~10/28/20 Comment: (Medtronic DCPP - 10/28/20) Code(s): Z95.0 - Presence of cardiac pacemaker (3) Right knee pain: Code(s): M25.561 - Pain in right knee Orders: Orders XR knee RT 2V Today M25.561 - Pain in right knee Referrals Orthopedics Referral M25.561 - Pain in right knee Coding Level of Care Code New Pt Level 4 (63555) Diagnoses Vasovagal syncope R55 Pacemaker Z95.0 Right knee pain M25.561 Additional Codes DUNG-7 Assessment Billing - DUNG-7 Assessment Tool: DUNG-7 Assessment 64267 ([id number])
== END 2023-09-07 09:53 | disposition home or self-care (01) ==
PROVIDERS: PCP Internal Medicine; Visit Provider Internal Medicine
DX: R55 Syncope and collapse (principal); Z95.0 Presence of cardiac pacemaker; M25.561 Pain in right knee
CPT/HCPCS: 99204

== ENCOUNTER 2023-09-07 09:58 | Outpatient (REF) | payer OTHER, SELFPAY ==
--- NOTE | ~2023-09-07 | XR_ITS ---
EXAMINATION: XR KNEE, RIGHT CLINICAL INFORMATION: Pain in right knee. COMPARISON: None available. TECHNIQUE: Two views of the right knee. FINDINGS: [id number] suprapatellar effusion. Bone mineralization is normal. Medial and lateral compartments are preserved. XR/XR knee RT 2V IMPRESSION: [id number] suprapatellar effusion.
== END 2023-09-07 09:59 | disposition home or self-care (01) ==
LOC: HO.XRAY 09:58
PROVIDERS: PCP Internal Medicine; Visit Provider Internal Medicine
DX: M25.461 Effusion, right knee (principal)
CPT/HCPCS: 73560

== ENCOUNTER 2023-09-13 11:30 | Outpatient (AMB) | payer OTHER, SELFPAY ==
[2023-09-13 11:32] VITALS: BMI 23.7
--- NOTE | 2023-09-13 11:32 | MHC.OFFVIS ---
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 The patient states that he injured his knee when he slipped on the ice on 05/24/2023. Is discomfort has improved over the last few weeks. He has returned to running up to 3 miles with no discomfort for exercise. The patient does not take any medicines for his discomfort. He denies any locking or giving way. He also has returned to boxing for exercise. He is due to start the [employer] later this year. Allergies bee pollen [BEE STINGS] Allergy (Severe, Verified 09/13/23 11:37) ANAPHYLAXIS Medication List - Last Reconciled 09/13/23 by Angelo Wilson MD acetaminophen (Tylenol) 325 mg PO QID PRN creatine monohydrate mg PO multivitamin (Daily Multi-Vitamin tablet) 1 tab PO DAILY [facility] Medical History Pacemaker (~10/28/20) History of COVID-19 (~05/07/20) Vasovagal syncope (~09/2020) Surgical History History of cardiac pacemaker (~09/2020) Family History (Updated 09/07/23 @ 09:43 by Shira Elizabeth MD) Father CAD (coronary artery disease) Mother No problems noted. Maternal Grandmother Breast cancer Paternal Uncle Throat cancer Social History (Updated 09/07/23 @ 09:44 by Shira Elizabeth MD) Household Members: Family Household Members Other:: 3 Housing: House Alcohol intake: current Comment: mild soreness 2-3 x a week 2-3 beers Patient Tobacco Use Status: Never used Tobacco Substance Use Type: Marijuana service: No Current occupational status: employed Cognitive needs: No Hearing needs: No Vision needs: No Physical Exam Vital Signs: BMI result Body Mass Index 23.7 Const Other: Well-nourished well-developed very friendly male awake alert and oriented x3 in no acute distress Extrem Other: Bilateral lower extremity examination shows good capillary refill, no skin lesions noted, normal sensation light touch Right knee examination shows no effusion, tenderness along his medial collateral ligament, no instability, full range of motion when compared to his left knee with no discomfort Results Reviewed Results Reviewed: Standing full weight-bearing x-rays of the patient's right knee show no bony abnormality Assessment & Plan Assessment & Plan (1) Right knee pain: Code(s): M25.561 - Pain in right knee Category: Medical Plan Mr. Griffiths presents with right knee discomfort most likely due to a healing sprain of his medial collateral ligament. The patient will continue with activity modifications as needed. At this point his symptoms continue to improve. The patient's symptoms will likely resolve over the next few months. He will follow up on an as-needed basis. He can proceed with joining the [employer] as planned later this year. Feel free to call me at any time should questions regarding his orthopedic management arise. I spent 22 minutes in reviewing the patient's records and imaging studies, seeing the patient and documenting in the medical record. Coding Level of Care Code New Pt Level 2 (47977) Diagnoses Right knee pain M25.561
== END 2023-09-13 11:59 | disposition home or self-care (01) ==
PROVIDERS: PCP Internal Medicine; Visit Provider Orthopaedic Surgery
DX: M25.561 Pain in right knee (principal)
CPT/HCPCS: 99202

== ENCOUNTER → 2023-09-13 11:30 | Outpatient (BNVA) | payer OTHER, SELFPAY | PROVIDERS: PCP Internal Medicine; Visit Provider Orthopaedic Surgery ==

== ENCOUNTER → 2023-11-08 23:59 | Outpatient (BNV) | payer BC, SELFPAY ==
--- NOTE | 2023-11-21 13:05 | A.OFFVIS_ITS ---
Intake Visit Reasons: REmote device check- Medtronic Allergies bee pollen [BEE STINGS] Allergy (Severe, Verified 09/13/23 11:37) ANAPHYLAXIS [facility], [facility] Medical History Pacemaker (~10/28/20) History of COVID-19 (~05/07/20) Vasovagal syncope (~09/2020) Surgical History History of cardiac pacemaker (~09/2020) Family History (Updated 09/07/23 @ 09:43 by Shira Elizabeth MD) Father CAD (coronary artery disease) Mother No problems noted. Maternal Grandmother Breast cancer Paternal Uncle Throat cancer Social History (Updated 09/07/23 @ 09:44 by Shira Elizabeth MD) Household Members: Family Household Members Other:: 3 Housing: House Alcohol intake: current Comment: mild soreness 2-3 x a week 2-3 beers Patient Tobacco Use Status: Never used Tobacco Substance Use Type: Marijuana service: No Current occupational status: employed Cognitive needs: No Hearing needs: No Vision needs: No Office Procedures Cardiac Device Check Cardiac Device Check Details: Remote pacemaker report generated 11/08/2023. Pacemaker function is adequate [id number] Cardiac Device Interrogation, pacemaker Procedure code (CPT) selection complete Assessment & Plan Assessment & Plan (1) Pacemaker: Onset Date: ~10/28/20 Comment: (Medtronic DCPP - 10/28/20) Code(s): Z95.0 - Presence of cardiac pacemaker Category: Medical Plan: See above Coding Level of Care Code Procedure Only Diagnoses Pacemaker Z95.0 CPT Codes Cardiac Device Check - Cardiac Device 12: [id number] Cardiac Device Interrogation, pacemaker ([id number])
== END ==
PROVIDERS: PCP Internal Medicine; Visit Provider Internal Medicine Cardiovascular Disease
DX: Z45.018 Encounter for adjustment and management of other part of cardiac pacemaker (principal)
CPT/HCPCS: 93294

== ENCOUNTER → 2024-02-09 23:59 | Outpatient (BNV) | payer BC, SELFPAY ==
--- NOTE | 2024-02-13 11:09 | MHC.OFFVIS ---
Intake Visit Reasons: Remote device check- Medtronic Allergies bee pollen [BEE STINGS] Allergy (Severe, Verified 09/13/23 11:37) [facility] Medical History Pacemaker (~10/28/20) History of COVID-19 (~05/07/20) Vasovagal syncope (~09/2020) Surgical History History of cardiac pacemaker (~09/2020) Family History (Updated 09/07/23 @ 09:43 by Shira Elizabeth MD) Father CAD (coronary artery disease) Mother No problems noted. Maternal Grandmother Breast cancer Paternal Uncle Throat cancer Social History (Updated 09/07/23 @ 09:44 by Shira Elizabeth MD) Household Members: Family Household Members Other:: 3 Housing: House Alcohol intake: current Comment: mild soreness 2-3 x a week 2-3 beers Patient Tobacco Use Status: Never used Tobacco Substance Use Type: Marijuana service: No Current occupational status: employed Cognitive needs: No Hearing needs: No Vision needs: No Office Procedures Cardiac Device Check Cardiac Device Check Details: Remote pacemaker report generated 02/09/2024. Pacemaker function is adequate. Atrial pacing 30% of time. No arrhythmias detected [id number] Cardiac Device Interrogation, pacemaker Procedure code (CPT) selection complete Assessment & Plan Assessment & Plan (1) Pacemaker: Onset Date: ~10/28/20 Comment: (Medtronic DCPP - 10/28/20) Code(s): Z95.0 - Presence of cardiac pacemaker Category: Medical Plan: See above Coding Level of Care Code Procedure Only Diagnoses Pacemaker Z95.0 CPT Codes Cardiac Device Check - Cardiac Device 12: [id number] Cardiac Device Interrogation, pacemaker ([id number])
== END ==
PROVIDERS: PCP Internal Medicine; Visit Provider Internal Medicine Cardiovascular Disease
DX: Z45.018 Encounter for adjustment and management of other part of cardiac pacemaker (principal)
CPT/HCPCS: 93294

== ENCOUNTER 2024-04-19 13:44 | Outpatient (AMB) | payer BC, SELFPAY ==
[2024-04-19 13:46] VITALS: BP 118/66; PULSE 89; O2SAT 98; BMI 24.2
--- NOTE | 2024-04-19 13:46 | A.OFFPC_ITS ---
Vital Signs 04/19/24 13:46 Height 5 ft 8 in Weight 159 lb 4 oz BMI 24.2 BP 118/66 Blood Pressure Location Lt brachial Position Sitting Pulse 89 Pulse Source Pulse Oximeter Pulse Oximetry (%) 98 Oxygen Delivery Method Room Air Intake Visit Reasons: Annual exam Allergies bee pollen [BEE STINGS] Allergy (Severe, Verified 04/19/24 13:49) ANAPHYLAXIS Medication List - Last Reconciled 04/19/24 by Shira Elizabeth MD acetaminophen (Tylenol) 325 mg PO QID PRN epinephrine (EpiPen 2-[place]) 0.3 mg (0.3 mL) IM Q4H PRN multivitamin (Daily Multi-Vitamin tablet) 1 tab PO DAILY Tobacco use date assessed: 04/19/24 Dental Screening Dental Screen Date: 04/19/24 Did you have a dental visit in the last 12 months?: Yes Did you have a dental problem in the last 6 months where you did not have access to dental care?: No Was dental information given to patient?: Patient has dentist HPI Annual exam HPI Details The patient is a 28-year-old male presenting with a follow-up regarding pacemaker check and knee injury. The patient has a history of a pacemaker placement for palpitations and has been regularly following up with cardiology. The patient denies any new episodes of dizziness or syncope since the last device check. The patient also presents with a history of a knee injury, which was initially caused by a boxing mishap and later exacerbated by a subsequent fall. This injury was previously evaluated and noted to have a significant effusion, indicating reactive changes. Currently, the patient reports no pain or related issues with the knee, having gone through a complete recovery without complications. The patient denies allergies to medication and takes Tylenol as needed. The patient is no longer taking creatinine supplementation and is on multivitamins. There are no new diagnoses or surgical interventions reported. - Regular monitoring of blood pressure, no current issues noted - Inquiry about cholesterol testing, dec ision pending - Discussion on the importance of fastin g blood work for cholesterol and glucose levels - Advised on hydration, aiming for a gal artem of water daily - Advised on maintaining flu vaccination , patient up-to-date on tetanus booster - Occasional social alcohol consumption, 2-4 beers per session, a couple of times a month - Active lifestyle, participation in box ing - Avoidance of tobacco and recreational drugs - Intentional hydration with daily goal of a gallon, occasional electrolyte supplementation - Constitutional: Denies fever, chills - Neurological: Denies dizziness, headac hes - Cardiovascular: Denies chest pain or p alpitations - Respiratory: Denies shortness of breat h - Gastrointestinal: Denies nausea, vomit ing, and abdominal discomfort. Notes infrequent heartburn triggered by specific foods. - Genitourinary: Denies dysuria, nocturi a - Musculoskeletal: Denies joint pain or swelling - Dermatological: Denies rash or lesions - ENT: Denies hearing loss or difficulty swallowing. Notes good vision and recent comprehensive vision and hearing tests. [facility] Medical History Pacemaker (~10/28/20) History of COVID-19 (~05/07/20) Vasovagal syncope (~09/2020) Surgical History History of cardiac pacemaker (~09/2020) Family History Father CAD (coronary artery disease) Mother No problems noted. Maternal Grandmother Breast cancer Paternal Uncle Throat cancer Social History (Updated 04/19/24 @ 14:17 by Shira Elizabeth MD) Household Members: Family Household Members Other:: 3 Housing: House Alcohol intake: current Comment: 2 x a month 2-4 beers Patient Tobacco Use Status: Never used Tobacco Substance Use Type: Marijuana service: No Current occupational status: employed Cognitive needs: No Hearing needs: No Vision needs: No Questionnaire PHQ-9 Over the last 2 weeks, how often have you been bothered by any of the following problems? 1. Little interest or pleasure in doing things: not at all 2. Feeling down, depressed, or hopeless: not at all 3. Trouble falling or staying asleep, or sleeping too much: not at all 4. Feeling tired or having little energy: not at all 5. Poor appetite or overeating: not at all 6. Feeling bad about yourself - or that you are a failure or have let yourself or your family down: not at all 7. Trouble concentrating on things, such as reading the newspaper or watching television: not at all 8. Moving or speaking so slowly that other people could have noticed. Or the opposite - being so fidgety or restless that you have been moving around a lot more than usual: not at all 9. Thoughts that you would be better off or of hurting yourself in some way: not at all Total score: 0 Depression Screening Interpretation: Negative Depression Screening Done: Yes 18923 - PHQ-9 Billing: Yes Source: Developed by Drs. Donato Ford, Latosha Sparks, Clarence Roldan and colleagues, with an educational josie from [employer]. Thrive Questionnaire Date Thrive assessed: 04/19/24 I am a: Patient What is your living situation today?: I have a steady place to live Within the past 12 months, did the food you bought not last and you didn't have the money to get more?: Never true Within the past 12 months, did you worry whether your food would run out before you got money to buy more?: Never true Do you have trouble paying for medicines?: No Do you have trouble getting transportation to medical appointments?: No Do you have trouble paying your heating and electricity bill?: No Do you have trouble taking care of your child, family member or friend?: No Do you have trouble with day-to-day activities such as bathing, preparing meals, shopping, managing finances, etc.?: No Are you currently unemployed and looking for a job?: No Are you interested in more education?: Yes Please select the resources that you would like help with: None Currently or been in a relationship where the following occur: No concerns reported THRIVE Score: 0 AUDIT C Alcohol Use Questionnaire (AUDIT-C) 1. How often do you have a drink containing alcohol?: 2-4 times a month 2. How many drinks containing alcohol do you have on a typical day when you are drinking?: 3 or 4 3. How often do you have six or more drinks on one occasion?: Never Total Score: 3 DUNG-7 AMB Questionnaire DUNG-7 Date DUNG - 7 assessed: 04/19/24 Feeling nervous, anxious, or on edge: 0 = Not at all Not being able to stop or control worryin = Not at all Worrying too much about different things: 0 = Not at all Trouble relaxin = Not at all Being so restless that it is hard to sit still: 0 = Not at all Becoming easily annoyed or irritable: 0 = Not at all Feeling afraid as if something awful might happen: 0 = Not at all Total DUNG-7 score (0-4 normal; 5-9 mild; 10-14 moderate; 15-21 severe): 0 Source: Developed by Drs. Donato Ford, Latosha Sparks, Clarence Roldan and colleagues, with an educational josie from [employer]. Review of Systems Const Denies poor appetite and Denies weakness Eyes Denies no additional complaints ENT Reports Normal hearing present, Denies dizziness, Denies nasal congestion, Denies tinnitus and Denies sore throat Card Denies chest pain, Denies syncope, Denies rapid heart rate and Denies dyspnea Resp Denies cough and Denies dyspnea GI Denies change in stool character, Reports constipation, Denies diarrhea, Denies nausea and Denies vomiting Denies dysuria and Denies urinary frequency Neuro Reports Normal hearing present, Denies confusion, Denies dizziness, Denies syncope and Denies weakness Psych Denies confusion Physical exam (Primary Care) Vital Signs: Last Vital Signs Pulse 89 04/19/24 13:46 BP 118/66 04/19/24 13:46 Pulse Ox 98 04/19/24 13:46 Oxygen Delivery Method Room Air 04/19/24 13:46 BMI result Body Mass Index 24.2 Tobacco/Smoking Status: Tobacco use Status Tobacco use date assessed 04/19/24 04/19/24 13:50 Patient Tobacco Use Status Never used Tobacco 04/19/24 14:17 PHQ-9: PHQ-9 Score PHQ-9: Total score 0 04/19/24 14:14 Depression Screening Interpretation: Negative Thrive Assessment: Date of Thrive Assessment Date Thrive assessed 04/19/24 04/19/24 13:50 Currently or been in a relationship where the following occur: No concerns reported Const General: No confusion Orientation/consciousness: No confusion HENMT Head: Yes normocephalic Ears: external ears normal and TM's normal bilaterally Face and sinus: Yes normal facial exam Mouth: moist mucous membranes Throat: Yes tonsils normal Eyes Conjunctivae: conjunctivae normal Pupils: Equal, round and reactive pupils present and Pupil accommodation reflex normal Direct Ophthalmoscopy: normal light reflex Neck Neck: No lymphadenopathy Thyroid: Thyroid normal Chest Chest palpation & inspection: normal inspection of the chest Resp Effort & Inspection: normal respiratory effort and no audible wheezes Auscultation: clear to auscultation bilaterally, no crackles, no wheezes and lung sounds not diminished Cardio Rate: regular rate Rhythm: regular rhythm Peripheral pulses: radial pulses present and dorsalis pedis present GI Palpation (GI): no masses Auscultation: normal bowel sounds and normoactive bowel sounds Rectal Exam - Male: Yes deferred Skin General skin exam: no rashes or lesions noted Rashes: no rashes Neuro General: No confusion Cranial nerves: Yes Equal, round and reactive pupils present and Yes Normal hearing present Cognition (Neuro): normal cognition Gait exam (Neuro): Normal gait present Motor exam (neuro): 5/5 motor strength present throughout Deep tendon reflexes (DTR's): Right brachioradialis reflex intensity grade: 2+, Left brachioradialis reflex intensity grade: 2+, Right patellar reflex intensity grade: 2+ and Left patellar reflex intensity grade: 2+ Extrem General: No edema Coding Level of Care Code Est Pt Prev Care 18-39y(08768) Diagnoses Annual physical exam Z00.00 Vasovagal syncope R55 Pacemaker Z95.0 Right knee pain M25.561 Additional Codes PHQ-9 - 88478 - PHQ-9 Billing: Yes ([id number]) Assessment & Plan Assessment & Plan (1) Annual physical exam: Code(s): Z00.00 - Encounter for general adult medical examination without abnormal findings Category: Medical (2) Vasovagal syncope: Onset Date: ~09/2020 Comment: (type 2B - predominantly cardio inhibitory response with asystole - s/p pacer 09/2020) Code(s): R55 - Syncope and collapse Category: Medical (3) Pacemaker: Onset Date: ~10/28/20 Comment: (Medtronic DCPP - 10/28/20) Code(s): Z95.0 - Presence of cardiac pacemaker Category: Medical (4) Right knee pain: Code(s): M25.561 - Pain in right knee Category: Medical Plan: Resolved Plan - Continue routine follow-up for pacemaker function with cardiology. - Encourage continuation of avoidance measures to prevent knee re-injury. - Facilitate cholesterol level testing when patient is ready, discuss the necessity of fasting for accurate results. - Reinforce the importance of hydration and balanced electrolyte intake. - Monitor blood pressure periodically despite current normal readings. - Discuss flu vaccine administration benefits, leave decision pending patient readiness. - Blood work to include type checking as requested, awaiting patient's decision. During the visit, we extensively discussed the patient's history of palpitations treated with a pacemaker. I clarified that no further episodes of dizziness or fainting have occurred, which is a positive outcome. We also reviewed the resolution of the prior knee effusion initially triggered by a boxing incident and the subsequent fall. I advised on the continuation of monitoring the knee status, encouraging the patient to avoid activities that might result in re- injury. For overall health maintenance, I discussed the importance of regular blood work, including cholesterol checks, while considering the timing when fasting can be accommodated. I explained the standard precautions and benefits of the flu shot, acknowledging the patient?s hesitancy at the moment, and addressed safety in hydration practices, emphasizing the advisability of maintaining proper electrolyte balance. - Continue routine cardiology follow-ups for pacemaker monitoring. - Maintain hydration goals, aiming for a gallon of water daily, and include electrolyte supplements as needed. - Avoid strenuous activities that could compromise the knee until fully secure. - Schedule cholesterol and glucose blood tests when fasting can be planned. - Consider getting the flu vaccine during the upcoming season for additional protection. - Follow up on any unexpected health changes and contact healthcare provider if concerns arise. - Monitor and report any new symptoms or significant changes directly. Orders: Orders Free T4 (Free Thyroxine) Today Z95.0 - Presence of cardiac pacemaker Lipid Panel Today E78.00 - Pure hypercholesterolemia, unspecified, Z95.0 - Presence of cardiac pacemaker ABO RH Type Today Z95.0 - Presence of cardiac pacemaker Complete Blood Count Auto Diff Today Z95.0 - Presence of cardiac pacemaker Comprehensive Met. Panel Today Z95.0 - Presence of cardiac pacemaker Thyroid Stimulating Hormone Today Z95.0 - Presence of cardiac pacemaker Vitamin B12 and Folate Today Z95.0 - Presence of cardiac pacemaker
== END 2024-04-19 14:29 | disposition home or self-care (01) ==
PROVIDERS: PCP Internal Medicine; Visit Provider Internal Medicine
DX: Z00.00 Encounter for general adult medical examination without abnormal findings (principal); R55 Syncope and collapse; Z95.0 Presence of cardiac pacemaker; M25.561 Pain in right knee

== ENCOUNTER → 2024-04-19 13:44 | Outpatient (BNVA) | payer BC, SELFPAY | PROVIDERS: PCP Internal Medicine; Visit Provider Internal Medicine | DX: Z00.00 Encounter for general adult medical examination without abnormal findings (principal); R55 Syncope and collapse; M25.561 Pain in right knee; Z95.0 Presence of cardiac pacemaker | CPT/HCPCS: 96127 ==

== ENCOUNTER → 2024-05-10 23:59 | Outpatient (BNV) | payer BC, SELFPAY ==
--- NOTE | 2024-05-14 14:02 | A.OFFVIS_ITS ---
Intake Visit Reasons: Remote device check- Medtronic Allergies bee pollen [BEE STINGS] Allergy (Severe, Verified 04/19/24 13:49) ANAPHYLAXIS [facility] Medical History Pacemaker (~10/28/20) History of COVID-19 (~05/07/20) Vasovagal syncope (~09/2020) Surgical History History of cardiac pacemaker (~09/2020) Family History Father CAD (coronary artery disease) Mother No problems noted. Maternal Grandmother Breast cancer Paternal Uncle Throat cancer Social History (Updated 04/19/24 @ 14:17 by Shira Elizabeth MD) Household Members: Family Household Members Other:: 3 Housing: House Alcohol intake: current Comment: 2 x a month 2-4 beers Patient Tobacco Use Status: Never used Tobacco Substance Use Type: Marijuana service: No Current occupational status: employed Cognitive needs: No Hearing needs: No Vision needs: No Office Procedures Cardiac Device Check Cardiac Device Check Details: Remote pacemaker report generated 05/10/2023. Pacemaker function is adequate [id number] Cardiac Device Interrogation, pacemaker Procedure code (CPT) selection complete Assessment & Plan Assessment & Plan (1) Pacemaker: Onset Date: ~10/28/20 Comment: (Medtronic DCPP - 10/28/20) Code(s): Z95.0 - Presence of cardiac pacemaker Category: Medical Plan: See above Coding Level of Care Code Procedure Only Diagnoses Pacemaker Z95.0 CPT Codes Cardiac Device Check - Cardiac Device 12: [id number] Cardiac Device Interrogation, pacemaker ([id number])
== END ==
PROVIDERS: PCP Internal Medicine; Visit Provider Internal Medicine Cardiovascular Disease
DX: Z45.018 Encounter for adjustment and management of other part of cardiac pacemaker (principal)
CPT/HCPCS: 93294

== ENCOUNTER 2024-07-18 10:23 | Outpatient (AMB) | payer BC, SELFPAY ==
--- NOTE | 2024-07-18 10:32 | MHC.OFFVIS ---
Vital Signs 07/18/24 10:33 Height 5 ft 8 in Weight 156 lb 8.451 oz BMI 23.8 BP 120/80 Blood Pressure Location Lt brachial Position Sitting Pulse 99 Intake Visit Reasons: 1 yr f/up w/ pacer ck Intake Note: 1 year follow-up feeling good Java Scala Developer Required: No Allergies bee pollen [BEE STINGS] Allergy (Severe, Verified 04/19/24 13:49) ANAPHYLAXIS Medication List - Last Reconciled 07/18/24 by Alberto Hansen MD acetaminophen (Tylenol) 325 mg PO QID PRN epinephrine (EpiPen 2-Denton) 0.3 mg (0.3 mL) IM Q4H PRN multivitamin (Daily Multi-Vitamin tablet) 1 tab PO DAILY HPI Comments Details: Markell comes for follow-up. He has been doing very well. 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 He was no cardiac symptoms whatsoever. He denies any lightheadedness, syncope. No prolonged palpitation irregular heartbeat. He exercise on a regular basis. Maintains high level of activity. Denies any prolonged palpitation irregular heartbeat. No exertional chest pain or shortness of breath. [facility] Medical History Pacemaker (~10/28/20) History of COVID-19 (~05/07/20) Vasovagal syncope (~09/2020) Surgical History History of cardiac pacemaker (~09/2020) Family History Father CAD (coronary artery disease) Mother No problems noted. Maternal Grandmother Breast cancer Paternal Uncle Throat cancer Social History Household Members: Family Household Members Other:: 3 Housing: House Alcohol intake: current Comment: 2 x a month 2-4 beers Patient Tobacco Use Status: Never used Tobacco Substance Use Type: Marijuana service: No Current occupational status: employed Cognitive needs: No Hearing needs: No Vision needs: No Review of Systems Const Denies chills, Denies fatigue, Denies fever(s), Denies frequent falls, Denies weakness, Denies weight gain and Denies weight loss ENT Denies dizziness Card Denies chest pain, Denies leg edema, Denies lightheadedness, Denies palpitations, Denies dyspnea, Denies dyspnea on exertion, Denies orthopnea and Denies other (loss of consciousness) Resp Denies cough, Denies dyspnea and Denies dyspnea on exertion GI Denies hematochezia and Denies change in stool character Musc Denies abnormal gait, Denies muscle weakness, Denies numbness, Denies radiating pain into limb and Denies tingling Neuro Denies abnormal gait, Denies dizziness, Denies frequent falls, Denies numbness, Denies tingling and Denies weakness Endo Denies fatigue and Denies palpitations Physical Exam Vital Signs: Last Vital Signs Pulse 99 07/18/24 10:33 BP 120/80 07/18/24 10:33 BMI result Body Mass Index 23.8 Const General: cooperative, comfortable, no acute distress, alert, awake and Physically active Nutritional Appearance: thin Orientation/consciousness: patient oriented x3 Limitations: no limitations Neck Neck: Yes trachea midline, Yes supple and Yes no JVD Chest Chest palpation & inspection: other (Pacemaker pocket is benign) Resp Effort & Inspection: normal respiratory effort Auscultation: clear to auscultation bilaterally Cardio Jugular venous distension: no JVD Rate: regular rate Rhythm: regular rhythm Heart sounds: S1 normal heart sound present, S2 normal heart sound present, no click, no gallops and no murmurs GI Auscultation: normal bowel sounds Neuro General: patient oriented x3 and no focal motor deficits Extrem General: Yes no clubbing, cyanosis or edema Office Procedures Cardiac Device Check Cardiac Device Check Details: Dual-chamber Medtronic pacemaker in place programmed in MVP mode with rate drop response turned on. Baseline rate was set at 45 beats per minute. We turned on the hysteresis during sleep to lower heart rate of 40 beats per minute. Atrial pacing 38% of time. Rate drop response turned on more than 10,000 times. No arrhythmias detected. Atrial ventricular sensing was adequate. Atrial ventricular pacing thresholds adequate and reprogrammed. 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 Multiple rate drop response noted. Pacemaker was reprogrammed for adequate function. Will continue to monitor remotely every 3 months and follow up in the clinic 1 year's time. Encouraged to continue to maintain adequate hydration and salt intake. Orthostatic precautions were discussed. Understands them well. Continue maintain activity level as tolerated. Will follow up in the clinic in 1 year's time, sooner p.r.n.. Thank you for allowing me to partake in his care Coding Level of Care Code Est Pt Level 4 (99751) Complex EM visit Add On G2211 Diagnoses Vasovagal syncope R55 CPT Codes Cardiac Device Check - Cardiac Device 2: [id number] Cardiac Device Check, pacemaker dual lead ([id number]) EKG - CPT: 94005-Bblviriaukubgshuw, Complete ([id number])
[2024-07-18 10:33] VITALS: BP 120/80; PULSE 99; BMI 23.8
--- OUTSIDE RECORDS SUMMARY | 2024-07-18 11:51 | XMS_ITS | Clinical Summary ---
Author Organization [facility] Address [address] [place] [id number] Phone Care Team Providers Care Power Tong Operator Name Role Phone Unavailable Primary Care Provider Unavailabl e Allergies Active Allergy Reactions Criticality Noted Date Comments Yellow Jacket Venom Anaphylaxis High Medications EPINEPHrine (EPIPEN 2-RICKY) 0.3 MG/0.3ML injection syringeIndicati ons:Bee sting allergy Inject 0.3 mL (0.3 mg total) under the skin Once PRN for anaphylaxis for up to 1 dose. 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 Planning to get re-tested at Allergy office Migraine 06/29/2016 Assessment & Plan (07/04/2017 9:31 AM EST): Still happen 5-6 times per year. No aura. Responds to hot shower and sleep Environmental and seasonal allergies 01/26/2015 Resolved Problems Problem Noted Date Diagnosed Date Resolved Date Pruritic erythematous rash 05/04/2017 0 07/04/2017 Overview (05/07/2017): mostly on face and upper torso, started 1/18 AM, spreading. No respiratory symptoms. Started on PDN 20mg/d x 5D by Urgent Care. Not clear if this is allergic reaction vs more likely pruritic viral exanthem Assessment & Plan (07/04/2017 9:31 AM EST): Resolved on prednisone but had WILLSON and nausea side effects from steroids Immunizations Immunization Administration Dates Next Due DTaP 10/15/2001, 9,04/16/1998, 998,1997 HPV, Quadrivalent 01/06/2014,03/21/2013,10/18/19 13 Hep B, ped/adol 07/23/1998,1997,1997 Hib (PRP-T) 02/03/1999, 8,02/12/1998, 998 IPV 10/15/2001, 9,02/12/1998, 998 Influenza 03/27/2001 MMR 10/15/2002,02/03/1999 Meningococcal Conj (Menactra) MCV4P 06/28/2016,0 12/29/2009 Tdap 12/29/2009 Varicella 10/18/2006,10/28/1998 Family History Relation Name Status Comments Father Alive Father: [allerg ies seafood, shellfish, grass, oats, migraine] Father's Brother Paternal Un dora: [arthritis] Maternal Grandfather Mat GFa ther: [Protein C deficiency,thrombosis] Maternal Grandmother Materna l Aunt: [migraine] Mother Alive Mother: [Protei n C deficiency, migraine] Other 1 [arthritis] Other 2 [arthritis] Other 3 [arthritis] Other 4 [mental illness ] Other 5 [migraine] Other 6 [Protein C defi ciency , mental illness, migraine, substance abuse] Other 7 [Protein C defi ciency,thrombosis] Other 8 Alive [allergies seaf ood, shellfish, grass, oats, migraine] Other 9 Alive [Protein C defi ciency, migraine] Paternal Grandfather Pat GFa ther: [arthritis] Paternal Grandmother Pat GMo ther: [mental illness] Social History Tobacco Use Types Packs/Day Years Used Date Smoking Tobacco: Never Smokeless Tobacco: Never Tobacco Cessation:Counseling Given: Yes Comments:No vaping Alcohol Use Standard Drinks/Week Comments No 0 (1 standard drink = 0.6 oz pur e alcohol) Hunger/Food Answer Date Recorded No 01/25/2020 Stable Housing Answer Date Recorded No 01/25/2020 Transportation Concerns Answer Date Rec orded No 01/25/2020 Hazards in Home Answer Date Recorded No 03/14/2020 Financing Utilities Answer Date Recorde d No 03/14/2020 Safety at Home Answer Date Recorded No 03/14/2020 Outside Support Answer Date Recorded No 03/14/2020 Understanding Health Concerns Answer Da te Recorded No 03/14/2020 Financing Health Concerns Answer Date R ecorded No 03/14/2020 Missing School or Work Answer Date Rodney rded No 03/14/2020 Sex and Gender Information Value Date Recorded Sex Assigned at Not on file Legal Sex Male 11:00 PM EST Gender Identity Not on file Sexual Orientation Not on file Last Filed Vital Signs Vital Sign Reading Time Taken Comments Blood Pressure 112/65 07/13/2018 10:32 AM EDT Pulse 64 07/13/2018 10:32 AM EDT Temperature 36.6 ??C (97.8 ??F) 05/08/2017 2:41 PM ES T Respiratory Rate - - Oxygen Saturation 98% 05/08/2017 2:41 PM EST Inhaled Oxygen Concentration - - Weight 62.8 kg (138 lb 6.4 oz) 07/13/2018 10:32 AM EDT Height 175.3 cm (5' 9 ) 07/13/2018 10:32 AM EDT Body Mass Index 20.44 07/13/2018 10:32 AM EDT Plan of Treatment Health Maintenance Due Date Last Done Comments DTaP,Tdap,and Td Vaccines (7 - Td or Tdap) 12/30/2019 12/29/2009, 10/15/2001, 04/14/1999, Additional history exists Influenza Vaccines (#1) 2023 03/27/2001 COVID-19 Vaccine ( season) 2023 Hepatitis B Vaccines Completed 07/23/1998, 1997, 1997 HIB Vaccines Completed 02/03/1999, 03/31, 02/12/1998, Additional history exists IPV Vaccines Completed 10/15/2001, 10/01, 02/12/1998, Additional history exists MMR Vaccines Completed 10/15/2002, 02/03/1999 Varicella Vaccines Completed 10/18/2006, 10/28/1998 HPV Vaccines Completed 01/06/2014, 03/02, 10/17/2012 Meningococcal Vaccine Completed 06/28/2016, 010 Hepatitis A Vaccines Aged Out No long er eligible based on patient's age to complete this topic Men B Vaccine Aged Out No longer elig ible based on patient's age to complete this topic Pneumococcal Vaccine Aged Out No long er eligible based on patient's age to complete this topic
--- OUTSIDE RECORDS SUMMARY | 2024-07-18 11:51 | XMS_ITS | Encounter Summary ---
Author Organization [facility] Address [address] [place] [id number] Phone Care Team Providers Care Team Automobile Assembler Name Role Phone Desean Nobles MD Primary Care Provider [phone] Encounter Details Date Type Department Care Team (Late st Contact Info) Description 12/07/2016 Conversion Encounter [facility] - [address], [address] [place] [address] Desean Nobles MD [address] [place] [id number] Social History Tobacco Use Types Packs/Day Years Used Date Smoking Tobacco: Never Assessed Sex and Gender Information Value Date Recorded Sex Assigned at Not on file Legal Sex Male 11:00 PM EST Gender Identity Not on file Sexual Orientation Not on file documented as of this encounter Plan of Treatment Not on file documented as of this encounter Visit Diagnoses Not on filedocumented in this encounter Care Teams Team Automobile Assembler Relationship Specialty Start Date End Date Desean Nobles MD [address] [place] [address] PCP - General 06/21/16 07/01/19 documented as of this encounter
== END 2024-07-18 11:00 | disposition home or self-care (01) ==
PROVIDERS: PCP Internal Medicine; Visit Provider Internal Medicine Cardiovascular Disease
DX: R55 Syncope and collapse (principal)
CPT/HCPCS: 93010; 93280; 99214

== ENCOUNTER → 2024-07-18 10:23 | Outpatient (BNVA) | payer BC, SELFPAY | PROVIDERS: PCP Internal Medicine; Visit Provider Internal Medicine Cardiovascular Disease | DX: R55 Syncope and collapse (principal); Z45.018 Encounter for adjustment and management of other part of cardiac pacemaker | CPT/HCPCS: 93005; 93280 ==

== ENCOUNTER → 2024-08-08 23:59 | Outpatient (BNV) | payer BC, SELFPAY ==
--- NOTE | 2024-08-21 13:48 | A.OFFVIS_ITS ---
Intake Visit Reasons: Remote device check- Medtronic Allergies bee pollen [BEE STINGS] Allergy (Severe, Verified 04/19/24 13:49) ANAPHYLAXIS [facility] Medical History Pacemaker (~10/28/20) History of COVID-19 (~05/07/20) Vasovagal syncope (~09/2020) Surgical History History of cardiac pacemaker (~09/2020) Family History Father CAD (coronary artery disease) Mother No problems noted. Maternal Grandmother Breast cancer Paternal Uncle Throat cancer Social History Household Members: Family Household Members Other:: 3 Housing: House Alcohol intake: current Comment: 2 x a month 2-4 beers Patient Tobacco Use Status: Never used Tobacco Substance Use Type: Marijuana service: No Current occupational status: employed Cognitive needs: No Hearing needs: No Vision needs: No Office Procedures Cardiac Device Check Cardiac Device Check Details: Remote pacemaker report generated 08/08/2024. Pacemaker function is adequate [id number] Cardiac Device Interrogation, pacemaker Procedure code (CPT) selection complete Assessment & Plan Assessment & Plan (1) Pacemaker: Onset Date: ~10/28/20 Comment: (Medtronic DCPP - 10/28/20) Code(s): Z95.0 - Presence of cardiac pacemaker Category: Medical Plan: See above Coding Level of Care Code Procedure Only Diagnoses Pacemaker Z95.0 CPT Codes Cardiac Device Check - Cardiac Device 12: [id number] Cardiac Device Interrogation, pacemaker ([id number])
== END ==
PROVIDERS: PCP Internal Medicine; Visit Provider Internal Medicine Cardiovascular Disease
DX: Z45.018 Encounter for adjustment and management of other part of cardiac pacemaker (principal)
CPT/HCPCS: 93294

== ENCOUNTER 2024-10-26 02:46 | Emergency (ER) | payer OTHER, SELFPAY ==
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
[2024-10-26 02:58] VITALS: BP 122/74; PULSE 86; O2SAT 98
[2024-10-26 03:11] VITALS: BP 125/90; PULSE 85; RESP 18; TEMP 36.7; O2SAT 98; BMI 24.3
[2024-10-26 03:43] VITALS: BP 125/90; PULSE 85; RESP 18; TEMP 36.7; O2SAT 98
== END 2024-10-26 03:45 | disposition home or self-care (01) ==
LOC: HO.ED 03:46
PROVIDERS: Emergency Provider Emergency Medicine; PCP Internal Medicine
DX: S01.511A Laceration without foreign body of lip, initial encounter (principal); X58.XXXA Exposure to other specified factors, initial encounter; Y93.9 Activity, unspecified; Y92.9 Unspecified place or not applicable; Y99.8 Other external cause status; Z79.899 Other long term (current) drug therapy
CPT/HCPCS: 99283; 99284

== ENCOUNTER → 2024-11-06 23:59 | Outpatient (BNV) | payer BC, SELFPAY ==
--- NOTE | 2024-11-11 13:31 | MHC.OFFVIS ---
Intake Visit Reasons: Remote device check- Medtronic Allergies bee pollen (BEE STINGS) Allergy (Severe, Verified 10/26/24 03:12) ANAPHYLAXIS [facility] Medical History Pacemaker (~10/28/20) History of COVID-19 (~05/07/20) Vasovagal syncope (~09/2020) Surgical History History of cardiac pacemaker (~09/2020) Family History Father CAD (coronary artery disease) Mother No problems noted. Maternal Grandmother Breast cancer Paternal Uncle Throat cancer Social History Household Members: Family Household Members Other:: 3 Housing: House Alcohol intake: never Comment: 2 x a month 2-4 beers Patient Tobacco Use Status: Never used Tobacco Smoked in Last 30 Days: No Use of substances other than those prescribed or required for medical reasons: No Substance Use Type: Marijuana Advance Directives: No Advance Directives Information Provided: Yes service: No Current occupational status: employed Cognitive needs: No Hearing needs: No Vision needs: No Office Procedures Cardiac Device Check Cardiac Device Check Details: Remote pacemaker report generated 11/06/2024. Pacemaker function is adequate [id number] Cardiac Device Interrogation, pacemaker Procedure code (CPT) selection complete Assessment & Plan Assessment & Plan (1) Pacemaker: Onset Date: ~10/28/20 Comment: (Medtronic DCPP - 10/28/20) Code(s): Z95.0 - Presence of cardiac pacemaker Category: Medical Plan: See above Coding Level of Care Code Procedure Only Diagnoses Pacemaker Z95.0 CPT Codes Cardiac Device Check - Cardiac Device 12: [id number] Cardiac Device Interrogation, pacemaker ([id number])
== END ==
PROVIDERS: PCP Internal Medicine; Visit Provider Internal Medicine Cardiovascular Disease
DX: Z45.018 Encounter for adjustment and management of other part of cardiac pacemaker (principal)
CPT/HCPCS: 93294

== ENCOUNTER → 2025-04-03 09:14 | Outpatient (REF) | payer BC, SELFPAY ==
--- NOTE | 2025-04-03 09:16 | CA_ITS ---
Transthoracic Echocardiogram Patient (Last, First, Middle): Markell Griffiths, Gender: M Date of : 1995 Age: 29 Procedure Date: 04/03/2025 Procedure Type: Transthoracic Echocardiogram Location: OP Height: 172.72 cm Weight: 74.84 kg BSA: 1.88 m2 Heart Rate: 81 bpm BP: 114 / 68 mmHg Pocket Operator: TREE Referring MD: Lakeisha Moore FUNNEL SETTERGalen Symptoms: R00.0 - Tachycardia, unspecified Study Quality: Adequate W contrast ECG Rhythm: Sinus Conclusions: - The left ventricular systolic function is normal. The calculated ejection fraction is 58% by biplane method. - No obvious valvular pathology seen on this study. Findings Procedure Information Contrast agent, definity, is being given per protocol without apparent complications. Left Ventricle Normal left ventricular cavity size. There is normal left ventricular wall thickness. The left ventricular systolic function is normal. The calculated ejection fraction is 58% by biplane method. There is no evidence of regional wall motion abnormalities. Diastolic function is normal for age. Right Ventricle Normal right ventricular cavity size and systolic function. There is a pacemaker wire seen in the right ventricle. Atria Both atria are normal in size. Aortic Valve There is a normal trileaflet aortic valve. There is no aortic valve stenosis. There is no aortic valve regurgitation. Mitral Valve The mitral valve appears normal. There is no mitral valve regurgitation. There is no mitral valve stenosis. Pulmonic Valve The pulmonic valve is likely normal. Tricuspid Valve There is trace tricuspid valve regurgitation. There is no evidence of pulmonary hypertension. Great Vessels The asc aorta and aortic arch are normal in size. Venous The inferior vena cava is normal in size and collapses greater than 50% with inspiration. Pericardium/Pleural There is no evidence of pericardial effusion. Prior Study Comparison No significant change compared to prior study dated: 09/25/2020. Recommendations, Care & Conclusions No obvious valvular pathology seen on this study. Measurements 2D Linear Measurements IVSd: 0.67 0.6-0.9/0.6-1.0 cm LVIDd: 4.69 3.9-5.3/4.2-5.9 cm LVIDd Index: 2.49 2.4-3.2/2.2-3.1 cm/m2 LVIDs: 2.92 2.0-3.6 cm LVPWd: 0.85 0.7-1.1 cm LA Diam: 3.40 2.7-3.8/3.0-4.0 cm LAIDs Index: 1.81 1.5-2.3 cm/m2 LV Mass: 141.77 67-162/88-224 g LV Mass Index: 75.41 43-95/49-115 g/m2 LVOT Diam: 2.00 3.0+(-)1.3 cm 2D Systolic Function EF 4C: 53.40 >55% EF 2C: 62.20 >55% EF BiP: 57.50 >55% Mitral Valve MV Pk E: 1.10 MV PK A: 0.64 MV Decel Time: 173.00 E/A: 1.70 E'Lateral: 15.20 E'Medial: 13.40 E/E' Med: 8.20 E/E' Lat: 7.20 PHT: 51.00 MVA PHT: 4.31 Decel Garrett: 6.40 Aortic Valve AoV Pk Michael: 1.34 AoV Mn Michael: 0.93 AoV VTI: 0.26 AoV Pk Grad: 7.00 Aov Mn Grad: 4.00 ROGE Cont.VTI: 2.69 LVOT LVOT Pk Michael: 1.32 LVOT Mn Michael: 0.82 LVOT VTI: 0.23 LVOT Pk Grad: 7.00 LVOT Mn Grad: 3.00 LVOT Diam: 2.00 LVOT Area: 3.14 Diastolic Function MV Pk E: 1.10 MV Pk A: 0.64 E/A: 1.70 E'Medial: 13.40 E/E' Med: 8.20 E' Laterial: 15.20 E/E' Lat: 7.20 Right Ventricle TAPSE (mm): 22.40 TVS' Michael: 12.20 Tricuspid Valve TR Pk Michael: 2.04 TR Pk Grad: 17.00 RA Press: 3.00 RVSP: 20.00 Great Vessels Aorta Sinus of Valsalva: 2.85 2.0-3.5 cm Ao Asc: 2.40 2.1-3.4 cm Ao Arch: 2.10 Pulmonary Veins Pulm Vein S/D 0.70 Updated in Other Vendor System with Status of Final Freddy Brown MD electronically signed on 04/05/2025 11:07:16 AM with status of Final
--- OUTSIDE RECORDS SUMMARY | 2025-04-03 10:11 | XMS_ITS | Encounter Summary ---
Author Organization [facility] Address [address] [place] [phone] Phone Care Team Providers Care Satellite Tv Technician Installer Name Role Phone Desean Nobles MD Primary Care Provider Encounter Details Date Type Department Care Team (Late st Contact Info) Description 12/07/2016 Conversion Encounter [facility] - [address], [address] [place] [address] Desean Nobles MD [address] [place] [id number] Social History Tobacco Use Types Packs/Day Years [...] on filedocumented in this encounter Care Teams Satellite Tv Technician Installer Relationship Specialty Start Date End Date Desean Nobles MD [address] [place] [id number] PCP - General 06/21/16 07/01/19 documented as of this encounter
--- OUTSIDE RECORDS SUMMARY | 2025-04-03 10:11 | XMS_ITS | Clinical Summary ---
Author Organization [facility] Address [address] [place] [phone] Phone Care Team Providers Care Credit Administration Specialist Name Role Phone Unavailable Primary Care Provider [...] 66 07/13/2018 10:32 AM EDT Temperature 36.6 C (97.8 F) 05/08/2017 2:41 PM EST Respiratory Rate - - Oxygen Saturation 98% [...] 04/14/1999, Additional history exists Influenza Vaccines (#1) 2024 03/27/2001 COVID-19 Vaccine ( season) 2024 Hepatitis B Vaccines Completed 07/23/1998, 1995, 1995 [...]
--- OUTSIDE RECORDS SUMMARY | 2025-04-03 10:12 | XMS_ITS | Clinical Summary ---
Author Organization [facility] Address [address] [place] [phone] Phone Care Team Providers Care Workers Compensation Claims Adjuster Name Role Phone Unknown, Unknown Primary Care Provider Unavairma lable Allergies Active Allergy Reactions Criticality Noted Date Comments Yellow Jacket Venom Anaphylaxis High 06/06/2019 Medications EPINEPHrine 0.3 mg/0.3 mL auto-injector Inject 0.3 mg under the skin. 07/04/2017 Active Active Problems Problem Noted Date Diagnosed Date Vasovagal syncope 06/06/2019 Bee sting allergy 06/29/2016 Overview (06/06/2019): Last Assessment & Plan: Was stung by yellow jacket (mulitple stings) ~2Y ago w/o reaction. Planning to get re-tested at Allergy office Migraine 06/29/2016 Overview (06/06/2019): Last Assessment & Plan: Still happen 5-6 times per year. No aura. Responds to hot shower and sleep Environmental and seasonal allergies 01/26/2015 Immunizations Immunization Administration Dates Next Due DTaP 10/15/2001, 9,04/16/1998,02/12,1997 HPV,quadrivalent 01/06/2014,03/21/2013, 3 Hepatitis B 07/23/1998,1997,1997 Hib,PRP-T 02/03/1999, 8,02/12/1998,12/16 IPV 10/15/2001, 9,02/12/1998,12/16 Influenza, Unspecified Formulation 03/27/2001 MMR 10/15/2002,02/03/1999 Meningococcal MCV4P 06/28/2016,12/29/2009 Td (adult),2 Lf Tetanus Toxo id, PF, Adsorbed 12/05/2019 Tdap 12/29/2009 Varicella 10/18/2006,10/28/1998 Family History Medical History Relation Comments Coronary artery disease Father Cancer Maternal Grandfather Cancer Maternal Grandmother Relation Status Comments Father Alive Maternal Grandfather Maternal Grandmother Alive Mother Alive Paternal Grandfather Alive Paternal Grandmother Alive Social History Tobacco Use Types Packs/Day Years Used Date Smoking Tobacco: Never Smokeless Tobacco: Never Tobacco Cessation:Counseling Given: No Education Answer Date Recorded Are you interested in more education? Not on elgin e 08/26/2022 Are you concerned about learning? Not on file 08/26/2022 No 08/26/2022 No 08/26/2022 Digital Access Answer Date Recorded No 09/23/2022 No 09/23/2022 No 09/23/2022 Reliable internet access at home? Not on file 09/23/2022 Device with a working camera? Not on file Sex and Gender Information Value Date Recorded Sex Assigned at Not on file Legal Sex Male 8:49 PM EDT Gender Identity Not on file Sexual Orientation Not on file Last Filed Vital Signs Vital Sign Reading Time Taken Comments Blood Pressure 110/74 01/17/2022 10:37 AM EDT Pulse 96 01/17/2022 10:37 AM EDT Temperature 36.8 C (98.2 F) 01/17/2022 10:37 AM EDT Respiratory Rate 20 01/17/2022 10:37 AM EDT Oxygen Saturation 97% 01/17/2022 10:37 AM EDT Inhaled Oxygen Concentration - - Weight 63.5 kg (140 lb) 01/17/2022 10:37 AM EDT Height 172.7 cm (5' 8 ) 01/17/2022 10:37 AM EDT Body Mass Index 21.29 01/17/2022 10:37 AM EDT Plan of Treatment Health Maintenance Due Date Last Done Comments HEPATITIS C SCREENING 10/14/2015 HIV ONE-TIME SCREENING (18-65 YEARS) 10/14/2015 DEPRESSION SCREENING 06/06/2020 06/06/2019 SMOKING STATUS SCREENING (Once After 26 Yrs) 10/14/2023 INFLUENZA VACCINE (#1) 2024 03/27/2001 COVID-19 VACCINE ( - 2024- season) 2024 Adult Td,Tdap Booster 12/04/2029 12/05/2019, 010 HIB VACCINES Completed 02/03/1999, 03/31, 02/12/1998, Additional history exists MENINGOCOCCAL VACCINES (ACWY) Completed 06/28/2016, 12/29/2009 HEPATITIS A VACCINES Aged Out No long er eligible based on patient's age to complete this topic MENINGOCOCCAL VACCINES (B) Aged Out N o longer eligible based on patient's age to complete this topic PNEUMOCOCCAL VACCINES (0-49 years) Aged Out No longer eligible based on patient's age to complete this topic Medical Devices Not on file Insurance [employer]ITS ADMINISTRATORS [employer] B[employer]EFITS ADMINIST[employer]ATORS [employer] B[employer]EFITS ADMINISTRATORS [employer]ITS ADMINISTRATORS [employer] BENEFITS ADMINISTRATORS [place] [phone] [employer]MIN[employer]MIN[employer] Care Teams Workers Compensation Claims Adjuster Relationship Specialty Start Date End Date Unknown, Unknown, PCP - General 07/27/23 Additional Source Comments The information contained in this document represents components of the legal health record. It is not the complete legal health record.[facility]
== END ==
LOC: HO.CARD 09:14
PROVIDERS: PCP Internal Medicine; Visit Provider Nurse Practitioner Family
DX: R00.0 Tachycardia, unspecified (principal)
CPT/HCPCS: 93306; Q9957

== ENCOUNTER → 2025-04-03 09:16 | Outpatient (BNV) | payer BC, SELFPAY | PROVIDERS: PCP Internal Medicine; Visit Provider Internal Medicine | DX: R94.31 Abnormal electrocardiogram [ECG] [EKG] (principal) | CPT/HCPCS: 93306 ==

== ENCOUNTER → 2025-04-08 12:48 | Outpatient (BNV) | payer BC, SELFPAY | PROVIDERS: PCP Internal Medicine | DX: I47.10 Supraventricular tachycardia, unspecified (principal); R00.0 Tachycardia, unspecified | CPT/HCPCS: 93294 ==

== ENCOUNTER 2025-04-22 13:45 | Outpatient (AMB) | payer BC, SELFPAY ==
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
[2025-04-22 13:53] VITALS: BP 118/52; PULSE 80; RESP 18; O2SAT 97; BMI 25.6
--- OUTSIDE RECORDS SUMMARY | 2025-04-22 14:58 | XMS_ITS | Clinical Summary ---
Author Organization [facility] Address [address] [place] [id number] Phone Care Team Providers Care Pai Gow Manager Name Role Phone Unknown, Unknown Primary Care [...] topic Medical Devices Not on file Insurance [employer] [place] [id number] [employer] Care Teams Pai Gow Manager Relationship Specialty Start Date End Date Unknown, Unknown, PCP - General 07/27/23 Additional Source Comments The information contained in this document represents components of the legal health record. It is not the complete legal health record.[facility]
--- OUTSIDE RECORDS SUMMARY | 2025-04-22 14:58 | XMS_ITS | Encounter Summary ---
Author Organization [facility] Address [address] [place] [id number] Phone Care Team Providers Care Commodity Industry Analyst Name Role Phone Desean Nobles MD Primary Care Provider [phone] Encounter Details Date Type Department Care Team (Late st Contact Info) Description 12/07/2016 Conversion Encounter [facility] - [address], [address] [place] [address] Desean Nobles MD [address] [place] [phone] Social History Tobacco Use Types Packs/Day Years [...] on filedocumented in this encounter Care Teams Commodity Industry Analyst Relationship Specialty Start Date End Date Desean Nobles MD [address] [place] [address] PCP - General 06/21/16 07/01/19 documented as of this encounter
--- OUTSIDE RECORDS SUMMARY | 2025-04-22 14:58 | XMS_ITS | Clinical Summary ---
Author Organization [facility] Address [address] [place] [id number] Phone Care Team Providers Care Transformer Repairer Name Role Phone Unavailable Primary Care Provider [...]
== END 2025-04-22 14:47 | disposition home or self-care (01) ==
LOC: HO.HMCH 13:46
PROVIDERS: PCP Internal Medicine; Visit Provider Internal Medicine
DX: R55 Syncope and collapse (principal); Z00.00 Encounter for general adult medical examination without abnormal findings; Z95.0 Presence of cardiac pacemaker